=== PATIENT | female | born 1980 | race Caucasian/White ===

== ENCOUNTER → 2021-12-29 12:42 | Outpatient (BNVA) | payer OTHER, SELFPAY | PROVIDERS: PCP Internal Medicine; Visit Provider Nurse Practitioner Family | DX: G47.33 Obstructive sleep apnea (adult) (pediatric) (principal); G25.81 Restless legs syndrome; D64.9 Anemia, unspecified | CPT/HCPCS: 99212 ==

== ENCOUNTER 2023-06-30 13:02 | Outpatient (AMB) | payer OTHER, SELFPAY ==
--- NOTE | 2023-06-30 13:04 | A.OFFVIS_ITS ---
Intake Vital Signs 06/30/23 13:05 Height 5 ft 4 in Weight 242 lb BMI 41.5 BP 104/72 Blood Pressure Location Rt brachial Position Sitting Pulse 82 Pulse Source Pulse Oximeter Pulse Oximetry (%) 96 Oxygen Delivery Method Room Air Intake Visit Reasons: 1yr follow up - LVM Intake Note: Patient presents for follow up. Patient states I see her for sleep but I have other issues I want to discuss with her. Allergies No Known Allergies Allergy (Verified 06/30/23 13:08) Medication List - Last Reconciled 06/30/23 by LACY Rodrigez cetirizine 10 mg PO DAILY 30 days gabapentin 200 mg (2 x 100 mg) PO BEDTIME 30 days insulin lispro (Humalog KwikPen (U-100) Insulin) subcut insulin syringe-needle U-100 (Ultracare Insulin Syringe) As directed levothyroxine 200 mcg PO DAILY omeprazole 40 mg PO DAILY zolpidem 10 mg PO BEDTIME PRN 30 days HPI HPI Comments History of Present Illness Details 42-yr-old female presents for f/u visit. Pt denies any significant interval medical changes. However, in the last month, she started having headaches that come on most nights around 7-8pm and last until the next day. The headache is a mid-frontal pressure and pounding. This is a/w photophobia, phonophobia, fuzzy/blurry vision, difficulty focusing, activity intolerance. Tylenol and Ibuprofen- does not help. Denies recent accidents, infections, neck pain, menstrual changes- has an IUD (has had this one for 3 yrs), dizziness, diplopia. She denies any h/o headaches. Her mother had headaches. She has h/o CLAUS but could not tolerate PAP tx. She continues to have restless legs whenever sitting. Riding her bike helps. She often feels like she sways when walking. She states that she is now needing to take the Ambien, Gabapentin, and Melatonin- she is not sure if this is ok or really why she is doing this. However, she did try just taking the Gabapentin or the Ambien alone- and these were not effective alone. [facility] Medical History (Updated 06/30/23 @ 18:01 by LACY Rodrigez) Anemia Diabetes GERD (gastroesophageal reflux disease) HLD (hyperlipidemia) Hypothyroidism IBS (irritable bowel syndrome) Osteoarthritis Surgical History (Updated 06/30/23 @ 13:09 by DANNY Ley) History of knee replacement No pertinent past surgical history Family History Father Arthritis Mother Depression Social History Alcohol intake: never Patient Tobacco Use Status: Never used Tobacco Review of Systems Const All systems reviewed & are unremarkable except as noted in HPI and below Physical Exam Vital Signs: Last Vital Signs Pulse 82 06/30/23 13:05 BP 104/72 06/30/23 13:05 Pulse Ox 96 06/30/23 13:05 Oxygen Delivery Method Room Air 06/30/23 13:05 BMI result Body Mass Index 41.5 Const General: cooperative and no acute distress Orientation/consciousness: patient oriented x3 HEENT Head: Yes normocephalic Resp Effort & Inspection: normal respiratory effort and able to speak in complete sentences Neuro General: patient oriented x3, gait normal and CN's II-XI intact bilaterally Cognition (Neuro): normal cognition Motor exam (neuro): 5/5 motor strength present throughout Deep tendon reflexes (DTR's): Right triceps reflex intensity grade: 2+, Left tri ceps reflex intensity grade: 2+, Rt Biceps (C5, C6): 2+, Left biceps reflex intensity grade: 2+, Right brachioradialis reflex intensity grade: 2+, Left brachioradialis reflex intensity grade: 2+, Right patellar reflex intensity grade: 1+ and Left patellar reflex intensity grade: 1+ Psych Appearance: grossly normal Mental Status: mental status grossly normal Speech and movement: Normal speech and movement present Affect: normal affect Attitude: cooperative Thought process: Normal thought process present Thought content: Normal thought content present Insight: Good insight present (Psych) Judgement: Good judgement present (Psych) Assessment & Plan Assessment & Plan (1) New onset headache: Code(s): R51.9 - Headache, unspecified (2) Anemia: Code(s): D64.9 - Anemia, unspecified (3) Restless leg syndrome: Code(s): G25.81 - Restless legs syndrome (4) Obstructive sleep apnea: Comment: AHI 12 per hour, O2 eran 77% Code(s): G47.33 - Obstructive sleep apnea (adult) (pediatric) (5) Insomnia: Code(s): G47.00 - Insomnia, unspecified Plan For new onset headache- Pt advised to undergo brain MRI w/wo Start Mag and B2 for prevention. Start Sumatriptan 50-100mg prn. For RLS and Insomnia- May continue Ambien 10 mg q.h.s.. Continue gabapentin 100-200 mg q.h.s.. Pt may benefit from reading/listening to Say Chi to Insomnia by Dr Isaac Medina or similar CBTi resources. Will check f/u CBC, CMP, iron studies. f/u in 3 months or sooner prn. Orders: Orders MR head/brain wo con Today E11.9 - Type 2 diabetes mellitus without complications, E78.5 - Hyperlipidemia, unspecified, H53.149 - Visual discomfort, unspecified, R51.9 - Headache, unspecified Complete Blood Count Auto Diff Today D64.9 - Anemia, unspecified, R51.9 - Headache, unspecified Comprehensive Met. Panel Today D64.9 - Anemia, unspecified, R51.9 - Headache, unspecified Ferritin Today D64.9 - Anemia, unspecified, R51.9 - Headache, unspecified IRON PROFILE Today D64.9 - Anemia, unspecified, R51.9 - Headache, unspecified Transferrin Today D64.9 - Anemia, unspecified, R51.9 - Headache, unspecified Medications: New riboflavin (vitamin B2) 400 mg PO DAILY 30 days 30 tabs 6RF magnesium oxide may hold for loose stools 400 mg PO BEDTIME 30 days 30 tabs 6RF sumatriptan succinate (0.5 - 1 x 100 mg) 50 - 100 mg orally at onset of headache, may repeat in 2 hrs PRN; max 2 tabs per day or 4 tabs/week (may take w ith Ibuprofen) 30 days 12 tabs 6RF migraine headache Coding Level of Care Code Est Pt Level 4 (20867) Diagnoses New onset headache R51.9 Anemia D64.9 Restless leg syndrome G25.81 Obstructive sleep apnea G47.33 Insomnia G47.00
[2023-06-30 13:05] VITALS: BP 104/72; PULSE 82; O2SAT 96; BMI 41.5
== END 2023-06-30 13:55 | disposition home or self-care (01) ==
PROVIDERS: Visit Provider Nurse Practitioner Family
DX: R51.9 Headache, unspecified (principal); D64.9 Anemia, unspecified; G25.81 Restless legs syndrome; G47.33 Obstructive sleep apnea (adult) (pediatric); G47.00 Insomnia, unspecified
CPT/HCPCS: 99214

== ENCOUNTER → 2023-06-30 13:02 | Outpatient (BNVA) | payer OTHER, SELFPAY | PROVIDERS: Visit Provider Nurse Practitioner Family | DX: R51.9 Headache, unspecified (principal); D64.9 Anemia, unspecified; G25.81 Restless legs syndrome; G47.33 Obstructive sleep apnea (adult) (pediatric); G47.00 Insomnia, unspecified; Z79.899 Other long term (current) drug therapy | CPT/HCPCS: 99212 ==

== ENCOUNTER 2023-11-03 15:20 | Outpatient (AMB) | payer OTHER, SELFPAY ==
--- NOTE | 2023-11-03 15:20 | A.OFFVIS_ITS ---
Intake Intake Visit Reasons: Follow up - Confirmed Intake Note: Patient following up. I just want to tell her I need a refill for ambien Allergies No Known Allergies [No Known Allergies*] Allergy (Unverified 11/03/23 15:21) Medication List - Last Reconciled 11/03/23 by LACY Rodrigez cetirizine 10 mg PO DAILY 30 days gabapentin 200 mg (2 x 100 mg) PO BEDTIME 30 days insulin lispro (Humalog KwikPen (U-100) Insulin) subcut insulin syringe-needle U-100 (Ultracare Insulin Syringe) As directed levothyroxine 200 mcg PO DAILY magnesium oxide 400 mg PO BEDTIME 30 days omeprazole 40 mg PO DAILY riboflavin (vitamin B2) 400 mg PO DAILY 30 days sumatriptan succinate 50 - 100 mg orally at onset of headache, may repeat in 2 hrs PRN; max 2 tabs per day or 4 tabs/week (may take with Ibuprofen) 30 days zolpidem 10 mg PO BEDTIME PRN 30 days HPI HPI Comments History of Present Illness Details 43-yr-old female presents for f/u televi alejandro visit through [facility]. She states she recently had a fall, states it was out of the blue fell while walking in a store. Like the leg had given out. She has been having a burning/firer pain moving down from the low back down the back of both legs. She has had some recent XRs to assess for sciatica. She has not been cycling as much recently d/t pain and the weather being colder. She is even having more difficulty walking even in the house but especially walking longer distances- as she needs to take frequent breaks. In the winter, she does ask family for rides at times. She is still having difficulty controlling her blood sugars- she is trying to take small steps to address. She has only had 2 migraines since her last visit in Jun 2023. Baseline migraine: mid-frontal pressure and pounding a/w photophobia, phonophobia, fuzzy/blurry vision, difficulty focusing, activity intolerance. She did try the Sumatriptan both times, which was effective. The brain MRI was unremarkable. She has been holding the Gabapentin- her legs feel ok off of it. She is otherwise sleeping well w/ Ambien 10mg and 2 melatonin gummies. When she misses a dose of ambien, she does not sleep at all even with trying to do some sleep hygiene practices. FORMERLY [facility] Medical History (Updated 11/03/23 @ 15:46 by LACY Rodrigez) Osteoarthritis HLD (hyperlipidemia) GERD (gastroesophageal reflux disease) IBS (irritable bowel syndrome) Hypothyroidism Diabetes Anemia Surgical History (Updated 10/06/23 @ 15:19 by Dawna Neal) History of knee replacement No pertinent past surgical history Family History (System 10/06/23 @ 15:19 by Dawna Neal) Father Arthritis Mother Depression Social History (System 10/06/23 @ 15:19 by Dawna Neal) Alcohol intake: never Patient Tobacco Use Status: Never used Tobacco Review of Systems Const All systems reviewed & are unremarkable except as noted in HPI and below Physical Exam Const General: cooperative and no acute distress Orientation/consciousness: patient oriented x3 Resp Effort & Inspection: normal respiratory effort and able to speak in complete sentences Neuro General: patient oriented x3 Cognition (Neuro): normal cognition Psych Appearance: grossly normal Mental Status: mental status grossly normal Speech and movement: Normal speech and movement present Affect: normal affect Attitude: cooperative Thought process: Normal thought process present Thought content: Normal thought content present Assessment & Plan Assessment & Plan (1) Insomnia: Code(s): G47.00 - Insomnia, unspecified (2) Restless leg syndrome: Code(s): G25.81 - Restless legs syndrome (3) Migraine without aura: Code(s): G43.009 - Migraine without aura, not intractable, without status migrainosus Plan For low back pain with radicular symptoms: Patient advised to follow-up with her PCP regarding recent x-ray results. She may benefit from PT. I If PCP requests we can help with further workup if PT is ineffective. For migraine- Reviewed brain MRI: Normal Continue magnesium and riboflavin for both prevention Continue sumatriptan 50-100 mg p.r.n. For RLS and Insomnia- May continue Ambien 10 mg q.h.s.. May continue to hold gabapentin 100-200 mg q.h.s.. Continue trying to optimize sleep hygiene techniques. Reviewed CBC, CMP, iron studies- within normal limits, ferritin 129 NL, glucose was elevated at 199. f/u in 3 months or sooner prn. Medications: Refilled zolpidem 10 mg PO BEDTIME 30 days PRN 30 tabs 3RF insomnia Telehealth Telehealth Location of provider rendering services: practice address Location of patient: address on file Patient Identification confirmed using: Name, : Yes Telehealth method: video Patient verbally consented to treatment: Yes Patient verbally consented to billing insurance company: Yes Patient informed of any privacy concerns related to visit: Yes Minutes spent on Phone/Video with Pt.: 18 Coding Level of Care Code Tele Est Pt Level 4 (01481) Diagnoses Insomnia G47.00 Restless leg syndrome G25.81 Migraine without aura G43.009
== END 2023-11-05 13:15 | disposition home or self-care (01) ==
LOC: HO.HSMS 15:20
PROVIDERS: PCP Internal Medicine; Visit Provider Nurse Practitioner Family
DX: G47.00 Insomnia, unspecified (principal); G25.81 Restless legs syndrome; G43.009 Migraine without aura, not intractable, without status migrainosus
CPT/HCPCS: 99214

== ENCOUNTER → 2023-11-03 15:20 | Outpatient (BNVA) | payer OTHER, SELFPAY | PROVIDERS: PCP Internal Medicine; Visit Provider Nurse Practitioner Family ==

== ENCOUNTER → 2024-11-17 13:31 | Outpatient (BNVA) | payer OTHER, SELFPAY | PROVIDERS: PCP Internal Medicine; Visit Provider Physician Assistant Medical | DX: G47.00 Insomnia, unspecified (principal); G25.81 Restless legs syndrome; G47.9 Sleep disorder, unspecified; R53.83 Other fatigue | CPT/HCPCS: 99212 ==

== ENCOUNTER 2024-11-21 15:41 | Outpatient (REF) | payer OTHER, SELFPAY ==
--- OUTSIDE RECORDS SUMMARY | 2024-11-21 16:29 | XMS_ITS | Clinical Summary ---
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 04/08/2021 Active traZODone (DESYREL) 50 mg tablet TAKE 1 TABLET BY MOUTH EVERY DAY AT BEDTIME 02/28/2023 Active SITagliptin phosphate (Januvia) 100 mg tablet Take 1 tablet by mouth daily. 02/10/2021 Active omeprazole (PriLOSEC) [address] capsule TAKE 1 CAPSULE BY MOUTH EVERY DAY 06/17/2021 Active metroNIDAZOLE (METROGEL) 0.75 % (37.5mg/5 gram) vaginal gel Insert vaginally at bedtime x 5 nights 04/18/2021 Active metFORMIN XR (GLUCOPHAGE-XR) 500 mg 24 hr tablet TAKE 1 TABLET BY MOUTH DAILY. 11/20/2021 Active meloxicam (Mobic) 15 mg tablet Take 1 Tablet by mouth daily. 12/08/2022 Active levothyroxine (SYNTHROID, LEVOTHROID) 200 mcg tablet TAKE 1 TABLET BY MOUTH EVERY DAY 12/04/2021 Active levothyroxine (SYNTHROID, LEVOTHROID) 175 mcg tablet TAKE 1 TABLET BY MOUTH EVERY DAY 05/28/2021 Active levothyroxine (SYNTHROID, LEVOTHROID) 150 mcg tablet Take 1 Tab by mouth daily. Take med first thing in the morning on empty stomach.?With only water.?Wait 30 minutes to 1 hour minimum before other food/medication/other things to drink 09/18/2020 Active levonorgestreL (MIRENA) 21 mcg/24hr (up to 8 yrs) 52 mg IUD 1 Each by Intrauterine route once. Active insulin lispro (HumaLOG KwikPen) 100 unit/mL injection pen INJECT THREE TIMES A DAY PER SLIDING SCALE WITH MEALS 100-150: 2 UNITS; 151-200: 4 UNITS; 201-250: 6 UNITS; 251-300: 8 UNITS; 301-350: 10 UNITS; 351-400: 12 UNITS 08/18/2023 Active insulin glargine (Lantus Solostar U-100 Insulin) 100 unit/mL (3 mL) injection pen INJECT 10 UNITS INTO THE SKIN AT BEDTIME. 10/13/2022 Active lidocaine-hydrocor tisone-aloe 2.8-0.55 % gel Place 1 Film vaginally 3 times daily as needed (pain). Apply topiclly to affected region thre times talley 04/16/2021 Activ e fluconazole (DIFLUCAN) 150 mg tablet Take one tablet orally in one single dose. May take 2nd tablet in 3 days if no improvement. 05/05/2021 Active cetirizine (ZyrTEC) 10 mg tablet TAKE 1 TABLET BY MOUTH DAILY. 09/27/2023 Active atorvastatin (LIPITOR) 10 mg tablet Take 1 tablet by mouth daily. 10/08/2021 Active ammonium lactate (LAC-HYDRIN) 12 % lotion Apply to soles of feet daily. At night wear socks to bed 09/16/2022 Active mv,josé,iron,mn/fol ic acid/chol (ZVBA-SEQA-GHKGE, PABA, ORAL) Take 2 Tabs by mouth daily. 09/18/2020 Active alcohol swabs pads, medicated USE THREE TIMES DAILY DIRECTED 11/11/2021 Active blood-glucose meter kit USE TO TEST BLOOD SUGAR THREE TIMES DAILY 04/02/2021 Active pen needle, diabetic (Easy Comfort Pen [place]) 33 gauge x 1/4 needle USE 1 NEEDLE SUBCUTANEOUSLY 4 TIMES DAILY 30 DAY(S) 10/06/2022 Active flash glucose scanning reader (FreeStyle Annamarie 14 Day [place]) misc 1 Device by Does not apply route continuous. Use reader to scan sensor at least every 8 hours 04/01/2021 Active flash glucose scanning reader (FreeStyle Annamarie 2 [place]) misc Use daily to check blood sugars 6-10 times a day. 03/13/2021 Active flash glucose sensor (FreeStyle Annamarie 14 Day Sensor) kit 1 Device by Does not apply route every 14 days. Apply to the back of the arm every 14 days. 04/01/2021 Active blood sugar diagnostic (FreeStyle Lite Strips) test strip USE DIRECTED THREE TIMES DAILY 05/04/2022 Active pen needle, diabetic 32 gauge x needle Use one daily with insulin. 03/13/2021 Active lancets (Safety-Let Lancets) 30 gauge misc USE DIRECTED TO TEST THREE TIMES DAILY 02/09/2023 Activ e Active Problems Problem Noted Date Diagnosed Date Dyslipidemia 09/18/2024 Type 2 diabetes mellitus 09/18/2024 Dysuria 08/29/2020 Overview (09/18/2024): Last Assessment & Plan: UA demonstrated mod blood, urine culture sent. Will treat as indicated. Sexual dysfunction 08/29/2020 Overview (09/18/2024): Last Assessment & Plan: Discussed with patient that sexual dysfunction is often multifactorial and may be due to medications, comorbid conditions such as diabetes, psychosocial factors, etc Patient had may questions regarding normal female anatomy and physiology, resources given for general education Discussed sex therapy, which the patient was interested in. Resources given. IBS (irritable bowel syndrome) 05/22/2019 Fatty liver 01/24/2015 Herpes, genital 07/23/2014 Overview (09/18/2024): Positive viral culture 07/19/2014 Elevated transaminase level 08/14/2013 Allergic rhinitis 07/13/2013 Osteoarthritis, knee 07/13/2013 Vitamin D deficiency 09/02/2012 Back pain 01/21/2010 Overview (09/18/2024): Saw Dr. Tariq in the past GERD (gastroesophageal reflux disease) 9 Hypothyroid 10/11/2009 Encounters Date Type Department Care Team Description 09/26/2024 Telephone Orthopedic Surgery [facility] [address] [place] [id number] Lucila Mcgraw from Last 3 Months Immunizations Name Administration Dates Next Due H1N1 Inj Preservative Free 02/07/2010 Influenza Quadravalent, MDCK , 0.5ml, with preservative (Flucelvax) 6mo and older 07/07/2017 Influenza trivalent, 0.5mL, preservative free (Fluarix; FluLaval; Fluzone) ages 6mo and older (Afluria) 3 years and older 06/28/2020,07/25/2014,08/31/2012,2010 Tdap Tetanus diptheria acell ular pertussis (Boostrix; Adacel) 7yo and older 02/07/2010 Surgical History Surgery Date Site/Laterality Comments OTHER SURGICAL HISTORY PROCEDURE: MA RPR LAC 2.5 CM/< MOUTH&/ANT TWO-THIRDS TONG SECTION PROCEDURE: HISTORICAL DELIVERY TOTAL KNEE ARTHROPLASTY 12/2019 Left PROCEDURE: MA ARTHRP KNE CONDYLE&PLATU MEDIAL&LAT COMPARTMENTS Medical History Medical History Date Comments Constipation DX:Constipation GERD (gastroesophageal reflu x disease) 10/11/2009 DX:GERD (gastroesophageal re flux disease) Hypothyroid 10/11/2009 DX:Hypothyroid Back pain 01/21/2010 DX:Back pain Allergic rhinitis 07/13/2013 DX:Allergic rh initis Dyslipidemia DX:Dyslipidemia Type II or unspecified type diabetes mellitus without mention of complication, uncontrolled DX:Type II or unspecified t ype diabetes mellitus without mention of complication, uncontrolled Fatty liver 01/24/2015 DX:Fatty liver 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 edema (CMS/HCC) DX:Diabetes mellitus due to underlying condition with 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 edema (HCC) IBS (irritable bowel syndrome) 05/22/2019 D X:IBS (irritable bowel syndrome) Total knee replacement status 02/01/2020 DX :Total knee replacement status; COMMENT: 01/11 left TKR Family history of thyroid cancer DX:Family history of thyroid cancer Genital herpes 04/18/2021 DX:Genital herpe s; COMMENT: positive culture IUD (intrauterine device) in place DX:IUD (intrauterine device) in place; COMMENT: Juan 02/18/2021 Family History Medical History Relation Name Comments Breast cancer Aunt Paternal aunt Arthritis Father TKR Hypertension Father Other: thyroid cancer Father's side aunt Glaucoma Maternal Grandmother Coronary artery disease Mother Depression Mother Diabetes Mother Glaucoma Mother Lung cancer Mother Other: anxiety Mother Other: bone cancer Mother Other: kidney dis Mother Arthritis Paternal Grandmother hx bila teral TKR Other: AIDS Sister Hepatitis Blindness Neg Hx Cataracts Neg Hx Colon cancer Neg Hx Macular degeneration Neg Hx Prostate cancer Neg Hx Strabismus Neg Hx Relation Name Status Comments Aunt Father Alive Healthy Father's side Maternal Grandmother Mother Alive Back problems; question of cancer; DM Paternal Grandmother Sister Social History Tobacco Use Types Packs/Day Years Used Date Smoking Tobacco: Former Cigarettes Q uit: 10/25/2009 Smokeless Tobacco: Former Alcohol Use Standard Drinks/Week Comments No 0 (1 standard drink = 0.6 oz pur e alcohol) Sex and Gender Information Value Date Recorded Sex Assigned at Not on file Gender Identity Not on file Sexual Orientation Not on file Obstetrics History Last Filed Vital Signs Vital Sign Reading Time Taken Comments Blood Pressure - - Pulse - - Temperature - - Respiratory Rate - - Oxygen Saturation - - Inhaled Oxygen Concentration - - Weight 111 kg (245 lb) 12/08/2022 3:18 PM EST Height 162.6 cm (5' 4 ) 12/08/2022 3:18 PM EST Body Mass Index 42.05 12/08/2022 3:18 PM EST Plan of Treatment Health Maintenance Due Date Last Done Comments Breast Cancer Screening 1982 Pneumococcal Vaccine: Pediatrics (0 to 5 Years) and At-Risk Patients (6 to 64 Years) (1 of 2 - PCV) 1988 Diabetes: Annual Foot Exam 1992 Diabetes: Annual Retina Eye Exam 1992 Hepatitis B Vaccines (1 of 3 - 19+ 3-dose series) 2001 Diabetes: Annual GFR (Glomerular Filtration Rate) 06/29/2021 06/29/2020 Cervical Cancer Screening: HPV 07/23/2022 07/23/2017 Depression Screening 09/21/2022 Social Influencers of Health Screening 09/21/2022 Diabetes: Annual Urine Albumin-Creatinine Ratio (uACR) 10/04/2022 12/04/2020 Diabetes: Blood Sugar Control Test (HGBA1C) 10/04/2022 03/29/2021 COVID-19 Vaccine ( season) 2024 Influenza Vaccine (#1) 2024 0, 06/21/2018, 07/07/2017, Additional history exists DTaP,Tdap,and Td Vaccines (3 - Td or Tdap) 09/16/2025 09/16/2015, 02/07/2010 Cholesterol Screening (Lipid Panel) 12/04/2025 12/04/2020 HIV Screening Completed 09/11/2020 Hepatitis C Screening Completed 09/11/2020 HIB Vaccines Aged Out No longer eligi ble based on patient's age to complete this topic HPV Vaccines Aged Out No longer eligi ble based on patient's age to complete this topic Hepatitis A Vaccines Aged Out No long er eligible based on patient's age to complete this topic IPV Vaccines Aged Out No longer eligi ble based on patient's age to complete this topic MMR Vaccines Aged Out No longer eligi ble based on patient's age to complete this topic Meningococcal ACWY Vaccine Aged Out N o longer eligible based on patient's age to complete this topic RSV Immunization Patients Under 20 months Aged Out No longer eligible based on patient's age to complete this topic Varicella Vaccines Aged Out No longer eligible based on patient's age to complete this topic Procedures Procedure Name Priority Date/Time Associated Diagnosis Comments HEMOGLOBIN A1C Routine 03/29/2021 URINE ALBUMIN CREATININE RATIO Routine 12/04/2020 LIPID PANEL Routine 12/04/2020 HEPATITIS C SCREENING Routine 09/11/2020 HIV SCREENING Routine 09/11/2020 ANNUAL BMP BLOOD TEST Routine 06/29/2020 HPV Routine 07/23/2017 from Last 3 Months or Most Recently Relevant to Health Maintenance Results * (ABNORMAL) Hemoglobin A1c (03/29/2021) Hemoglobin A1C 9.2(A) 6.5 % Blood Venous blood specimen / Unknown Historical Provider LAB BLOOD ORDERAB LES * Urine Albumin Creatinine Ratio (12/04/2020) [facility] Urine Albumin Creatinine Ratio Abstracted Historical Provider [facility] * (ABNORMAL) Lipid panel (12/04/2020) [facility] LDL/HDL Ratio 4 0 - 4 Triglycerides 184(A) 0 - 150 mg/dL Cholesterol 172 0 - 200 mg/dL HDL 42 40 mg/dL LDL Cholesterol 94 0 - 100 mg/dL Blood Venous blood specimen / Unknown Historical Provider LAB BLOOD ORDERAB [facility] * HIV Screening (09/11/2020) [facility] HIV Screening Abstracted Historical Provider [facility] * Hepatitis C Screening (09/11/2020) [facility] Hepatitis C Screening Abstracted Historical Provider [facility] * Annual BMP Blood Test (06/29/2020) [facility] Annual BMP Blood Test Abstracted Historical Provider [facility] * Cervical Cancer Screening: HPV (07/23/2017) 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
[2024-11-21 17:47] LABS: Hematocrit 42.3 % (37.0-47.0); Hemoglobin 14.2 g/dl (12.0-16.0); Mean Corpuscular HGB Conc 33.6 g/dl (31.0-35.0); Mean Corpuscular Hemoglobin 29.8 pg (27.0-33.0); Mean Corpuscular Volume 88.9 fL (80.0-98.0); Mean Platelet Volume 11.5 fL (9.4-12.3); Platelet Count 231 X10*3/uL (160-400); Red Blood Count 4.76 X10*6/uL (4.20-5.50); Red Cell Distribution Width 12.4 % (11.0-16.0); White Blood Count 7.7 X10*3/uL (4.8-10.8)
[2024-11-21 18:02] LABS: Estimated Average Glucose 169 mg/dL; Hemoglobin A1C 218.0888 umol/L; Hemoglobin A1c % 7.5 % (<6.0); Total Hemoglobin (HGBA1C) 3729.5687 umol/L
[2024-11-21 18:10] LABS: Alanine Aminotransferase 99 U/L (0-31); Alkaline Phosphatase 113 U/L (39-117); Anion Gap 11 (12-20); Aspartate Amino Transferase 65 U/L (5-31); Bilirubin Total 0.2 mg/dL (0.0-1.0); Blood Urea Nitrogen 13 mg/dL (9-16); Carbon Dioxide 26 mmol/L (22-29); Chloride 108 mmol/L (96-108); Estimated Glomerular Filt Rate > 60; Glucose Random 187 mg/dL (60-115); Potassium 3.8 mmol/L (3.3-5.1); Sodium 141 mmol/L (135-145)
[2024-11-21 18:27] LABS: TSH reflex Free T4 0.04 uIU/mL (0.32-4.0); Vitamin D 25-OH Total 63.3 ng/mL (>30)
[2024-11-21 18:38] LABS: Folate 14.1 ng/mL (> or = 4.0); Vitamin B12 677 pg/mL (200-900)
[2024-11-21 19:47] LABS: Free T4 (Free Thyroxine) 1.36 ng/dL (0.71-1.85)
[2024-11-24 19:58] LABS: Methylmalonic Acid 83 nmol/L (55-335)
== END 2024-11-21 15:42 | disposition home or self-care (01) ==
LOC: HO.HKASLDS 15:41
PROVIDERS: Visit Provider Physician Assistant Medical
DX: G47.00 Insomnia, unspecified (principal); R53.83 Other fatigue; G47.9 Sleep disorder, unspecified; F09 Unspecified mental disorder due to known physiological condition
CPT/HCPCS: 36415; 80053; 82306; 82607; 82746; 83036; 83921; 84439; 84443; 85027

== ENCOUNTER 2025-03-29 14:58 | Outpatient (AMB) | payer OTHER, SELFPAY ==
[2025-03-29 14:59] VITALS: PULSE 90; O2SAT 97; BMI 44.6
--- NOTE | 2025-03-29 14:59 | MHC.OFFVIS ---
Vital Signs 03/29/25 14:59 Height 5 ft 4 in Weight 260 lb BMI 44.6 Pulse 90 Pulse Source Pulse Oximeter Pulse Oximetry (%) 97 Oxygen Delivery Method Room Air Intake Visit Reasons: follow up Intake Note: Patient presents follow up CLAUS/RLS. Labs/HST in chart(AHI-36.6, ERAN 77%. Start APAP 8-20cm water). Had one awhile ago but missed placed in and now having Trouble getting machine. Accompanied by: Daughter Allergies No Known Allergies [No Known Allergies*] Allergy (Verified 03/29/25 15:04) HPI Comments Details: 44-yr-old female presents for sleep evaluation. HST c/w severe claus AHI is 36.6 and oxygen eran 77%. She recently had r. knee replacement on Mar 09 2025, she is in a wheelchair, and it is healing, will start PT for 6-12 weeks. In 2020 she was compliant with her cpap use, she was cleaning the house and moving so she misplaced it on the moving truck in Oct 2023, since then she has not been able to sleep very well. She continues to have fragmented sleep, she goes to bed at 11pm and gets up at 6am. Her migraines are now better, decreased in intensity and frequency, however constantly is fatigued despite TSH correction with Levothyroxing 200mcg and still feeling exhausted. She used to take Ambien 10mg and 2 melatonin gummies daily at 1am then falls asleep at 3am. RLS: Neuropathy, L. knee replacement December 2019 Dr. Shruti IVY, Valentina sided sciatica and L. ankle feels like it is on fire, burning, numbness, sensation and jumpiness will not let her relax at night, she is on gabapentin 1 in the am and 1 at lunch then 2- 100mg at night, per her pcp Dr. Ponce at [facility]. She also has bilateral hand pain with numbness, pins and needles along with cramps worse at night. Her memory is poor, she is forgetting her thought process, concentration and lack focus. She c/o brain fog today. Mood, memory and diet are poor due to lack of sleep. Her A1c is now better managed on insulin. [facility] Medical History Osteoarthritis HLD (hyperlipidemia) GERD (gastroesophageal reflux disease) IBS (irritable bowel syndrome) Hypothyroidism Diabetes Anemia Surgical History History of knee replacement No pertinent past surgical history Family History Father Arthritis Mother Depression Social History Alcohol intake: never Patient Tobacco Use Status: Never used Tobacco Physical Exam Vital Signs: Last Vital Signs Pulse 90 03/29/25 14:59 Pulse Ox 97 03/29/25 14:59 Oxygen Delivery Method Room Air 03/29/25 14:59 BMI result Body Mass Index 44.6 Const General: cooperative, comfortable and no acute distress Nutritional Appearance: average body habitus and obese (BMI is 44) Orientation/consciousness: patient oriented x3 HEENT Face and sinus: Yes normal facial exam and Yes face symmetric Teeth and gingiva: other ([place] score of 4) Eyes Pupils: Equal, round and reactive pupils present Neck Neck: Yes full ROM and Yes supple Resp Effort & Inspection: normal respiratory effort and able to speak in complete sentences Neuro General: patient oriented x3 and moves all extremities Cranial nerves: Yes CN's II-XII intact bilaterally, Yes Facial sensation intact/muscles of mastication intact, Yes Equal, round and reactive pupils present, Yes Normal accommodation reflex present, Yes Bilaterally intact EOM present, Yes Nystagmus not present, Yes Normal facial strength present, Yes Midline tongue present, Yes Symmetric palate elevation present, Yes Ability to bilaterally rotate head present and Yes Ability to bilaterally elevate shoulders present Gait exam (Neuro): Normal gait present Motor exam (neuro): 5/5 motor strength present throughout and Normal motor muscle tone present throughout Coordination: [id number] test normal Psych Appearance: grossly normal Thought content: Normal thought content present Assessment & Plan Assessment & Plan (1) Restless leg syndrome: Code(s): G25.81 - Restless legs syndrome Category: Medical (2) Insomnia: Onset Date: ~11/17/24 Code(s): G47.00 - Insomnia, unspecified Category: Medical Qualifiers: Insomnia type: unspecified Qualified Code(s): G47.00 - Insomnia, unspecified (3) Fatigue due to sleep pattern disturbance: Code(s): R53.83 - Other fatigue; G47.9 - Sleep disorder, unspecified Category: Medical Plan CLAUS start cpap therapy. Excessive Daytime fatigue will send labs to r/o deficiencies. RLS: Will continue her GP 200mg at bedtime daily. Migraine free for now, has Sumatriptan PRN use. Will f/u in 3 months after HST. Orders: Orders Homocysteine 03/29/25 G47.9 - Sleep disorder, unspecified, R53.83 - Other fatigue Ferritin 03/29/25 G47.9 - Sleep disorder, unspecified, R53.83 - Other fatigue Hemoglobin A1c 03/29/25 G47.9 - Sleep disorder, unspecified, R53.83 - Other fatigue IRON PROFILE 03/29/25 G47.9 - Sleep disorder, unspecified, R53.83 - Other fatigue Methylmalonic Acid 03/29/25 G47.9 - Sleep disorder, unspecified, R53.83 - Other fatigue TSH reflex Free T4 03/29/25 G47.9 - Sleep disorder, unspecified, R53.83 - Other fatigue Vitamin D 25-OH Total 03/29/25 G47.9 - Sleep disorder, unspecified, R53.83 - Other fatigue Medications: New alpha lipoic acid take one capsule daily at bedtime for restless leg syndrome. 200 mg PO DAILY 30 caps 0RF rls 1 month MDD 200mg G25.81 - Restless legs syndrome pyridoxine (vitamin B6) take one tablet daily at bedtime for restless leg symptoms of jumpy legs. 100 mg PO 2XW 30 tabs 3RF restless legs syndrome MDD 100mg G25.81 - Restless legs syndrome Patient Instructions: Sleep Hygiene provided: set a scheduled bedtime and wake time to help regulate the circadian rhythm and balance the release of pituitary hormones. Sleep in a dark room, temperatures below 68 degrees, and no devices n bed. Limit caffeinated products 6 hours prior to bed, and limit fluids 2-4 hours prior to bed. Gentle night yoga, diffusing essential oils, and playing soft music can be relaxing. Coding Level of Care Code Est Pt Level 4 (20281) Diagnoses Restless leg syndrome G25.81 Insomnia, unspecified type G47.00 Insomnia type: unspecified Fatigue due to sleep pattern disturbance R53.83; G47.9 Time Spent (min) 30 Comment Improving
--- OUTSIDE RECORDS SUMMARY | 2025-03-29 17:40 | XMS_ITS | Encounter Summary ---
Author Organization [facility] Address [address] [place] [address] Care Team Providers Care Punch Operator Name Role Phone Sabas Spain MD Primary Care Provider [phone] Encounter Details Date Type Department Care Team (Late st Contact Info) Description 03/25/2025 Lab Requisition [facility] - Main Lab [address] [facility] [place] [address] Sabas Spani MD [address] [place] [id number] Essential (primary) hypertension Social History Tobacco Use Types Packs/Day Years Used Date Smoking Tobacco: Former Cigarettes Q uit: 10/25/2009 Smokeless Tobacco: Former Alcohol Use Standard Drinks/Week Comments No 0 (1 standard drink = 0.6 oz pur e alcohol) Comments Unknown Sex and Gender Information Value Date Recorded Sex Assigned at Not on file Legal Sex Female 9:25 AM EST Gender Identity Not on file Sexual Orientation Not on file documented as of this encounter Plan of Treatment Not on file documented as of this encounter Visit Diagnoses Diagnosis Essential (primary) hypertension Unspecified essential hypertension documented in this encounter Care Teams Punch Operator Relationship Specialty Start Date End Date Sabas Spain MD [address] [facility] [address] [facility] [id number] PCP - General Family Medicine 03/22/25 documented as of this encounter
== END 2025-03-29 15:57 | disposition home or self-care (01) ==
LOC: HO.HSMS 14:59
PROVIDERS: PCP Internal Medicine; Visit Provider Physician Assistant Medical
DX: G25.81 Restless legs syndrome (principal); G47.00 Insomnia, unspecified; R53.83 Other fatigue; G47.9 Sleep disorder, unspecified
CPT/HCPCS: 99214

== ENCOUNTER → 2025-03-29 14:58 | Outpatient (BNVA) | payer OTHER, SELFPAY | PROVIDERS: PCP Internal Medicine; Visit Provider Physician Assistant Medical | DX: G25.81 Restless legs syndrome (principal); G47.00 Insomnia, unspecified; G47.9 Sleep disorder, unspecified; R53.83 Other fatigue | CPT/HCPCS: 99212 ==

== ENCOUNTER 2025-07-11 13:44 | Outpatient (AMB) | payer OTHER, SELFPAY ==
[2025-07-11 13:49] VITALS: BP 110/72; PULSE 72; O2SAT 97; BMI 41.2
--- NOTE | 2025-07-11 13:49 | A.OFFVIS_ITS ---
Vital Signs 07/11/25 13:49 Height 5 ft 4 in Weight 240 lb BMI 41.2 BP 110/72 Blood Pressure Location Rt brachial Position Sitting Pulse 72 Pulse Source Pulse Oximeter Pulse Oximetry (%) 97 Oxygen Delivery Method Room Air Intake Visit Reasons: Follow up Airline Stewardess Required: No Allergies No Known Allergies (No Known Allergies*) Allergy (Verified 07/11/25 13:49) HPI Comments Details: 44-year-old female presents for follow-up of insomnia, restless leg syndrome, and migraine. Patient was last seen on 03/29/2025 by SUELLEN Oconnor. 12/16/2024 HST showed severe obstructive sleep apnea with nocturnal hypoxemia with AHI 37 per hour, average SpO2 92%, O2 eran 77%, and SpO2 under 88% times 14.7 minutes. The recommendation from the HST report was for the patient to undergo a follow- up in-lab PAP titration sleep study with ETCO2. Patient states she thought she was going to restart CPAP after her last visit; however, she has not heard anything about this yet. She continues to endorse snoring, difficulty initiating and maintaining sleep, and restlessness when inactive. She reports Ambien is not working as well as it used to. She was also started on vitamin B6 by SUELLEN Boucher, which she is taking at bedtime. She typically takes the Ambien around 12 am, as she states that if she takes it after 2 am, she will not be able to sleep at all. She typically wakes up around 12 noon and states that this works for her lifestyle. She is not sure when her last thyroid levels were checked. She also notes that her PCP moved from [place] to the [facility], and she does not have transportation to get to the [facility]. Typically, she walks to most places from her home in the [facility]. She does see her flow machine operator for her diabetes management at [facility], and she states she is waiting to receive her next follow-up appointment. [facility] Medical History (Updated 07/12/25 @ 08:50 by LACY Rodrigez) Obstructive sleep apnea Osteoarthritis HLD (hyperlipidemia) GERD (gastroesophageal reflux disease) IBS (irritable bowel syndrome) Hypothyroidism Diabetes Anemia Surgical History History of knee replacement No pertinent past surgical history Family History Father Arthritis Mother Depression Social History Alcohol intake: never Patient Tobacco Use Status: Never used Tobacco Review of Systems Const All systems reviewed & are unremarkable except as noted in HPI and below Physical Exam Vital Signs: Last Vital Signs Pulse 72 07/11/25 13:49 BP 110/72 07/11/25 13:49 Pulse Ox 97 07/11/25 13:49 Oxygen Delivery Method Room Air 07/11/25 13:49 BMI result Body Mass Index 41.2 Const Other: Central obesity General: cooperative and no acute distress Orientation/consciousness: patient oriented x3 Resp Effort & Inspection: normal respiratory effort and able to speak in complete sentences Neuro General: patient oriented x3 Cognition (Neuro): normal cognition Psych Appearance: grossly normal Mental Status: mental status grossly normal Speech and movement: Normal speech and movement present Affect: normal affect Attitude: cooperative Assessment & Plan Assessment & Plan (1) Severe obstructive sleep apnea: Code(s): G47.33 - Obstructive sleep apnea (adult) (pediatric) Category: Medical (2) Nocturnal hypoxemia: Code(s): G47.34 - Idiopathic sleep related nonobstructive alveolar hypoventilation Category: Medical (3) Insomnia: Onset Date: ~11/17/24 Code(s): G47.00 - Insomnia, unspecified Category: Medical Qualifiers: Insomnia type: unspecified Qualified Code(s): G47.00 - Insomnia, unspecified (4) Restless leg syndrome: Code(s): G25.81 - Restless legs syndrome Category: Medical (5) Migraine without aura: Code(s): G43.009 - Migraine without aura, not intractable, without status migrainosus Category: Medical Qualifiers: Status migrainosus presence: without status migrainosus Intractability: not intractable Qualified Code(s): G43.009 - Migraine without aura, not intractable, without status migrainosus Plan For severe CLAUS with nocturnal hypoxemia, RLS, and Insomnia: * Patient advised to undergo follow-up in-lab PAP titration study with ETCO2 at [facility], as per patient's preference, as she prefers to walk to her health appo intments. * Check fasting labs today to assess for underlying etiologies of RLS symptoms. * Trial Dayvigo 5 mg at sleep onset * Discontinue Ambien 10 mg q.h.s. when Dayvigo is available * Continue gabapentin 100-200 mg q.h.s. * Adjust the vitamin B6 dose from q.h.s. to q.a.m. However, we will check the level as the patient does not have a baseline serum B6 level. * Reviewed strategies to optimize sleep hygiene: * If you are waking up at 12 pm, aim for a bedtime around 3-5 a.m., as most people need 7-9 hours of sleep, * Maintain a consistent wake-up schedule * Encouraged patient to listen to sleep education resources, such as the Sleep Unplugged podcast by Dr. Tim Evans * Regular physical activity is one of the best things to do for sleep. * Keeping the same wake-up time is critical for good sleep. For migraine- Previous brain MRI: Normal Continue magnesium and riboflavin for migraine prevention Continue sumatriptan 50-100 mg p.r.n. As the patient does not currently have access to her PCP, we will see if she can be set up with a PT1 transportation service or assist her in finding a new local PCP. Will follow-up upon review of above and patient to follow-up in clinic in 6 months or sooner prn. Orders: Orders Complete Blood Count Auto Diff 07/11/25 D64.9 - Anemia, unspecified, E03.9 - Hypothyroidism, unspecified, E11.9 - Type 2 diabetes mellitus without complications, E78.5 - Hyperlipidemia, unspecified, M79.609 - Pain in unspecified limb, R20.2 - Paresthesia of skin Comprehensive [place]. Panel Fast 07/11/25 D64.9 - Anemia, unspecified, E03.9 - Hypothyroidism, unspecified, E11.9 - Type 2 diabetes mellitus without com plications, E78.5 - Hyperlipidemia, unspecified, M79.609 - Pain in unspecified limb, R20.2 - Paresthesia of skin Ferritin 07/11/25 D64.9 - Anemia, unspecified, E03.9 - Hypothyroidism, unspecified, E11.9 - Type 2 diabetes mellitus without complications, E78.5 - Hyperlipidemia, unspecified, M79.609 - Pain in unspecified limb, R20.2 - Paresthesia of skin Erythrocyte Sedimentation Rate 09/17/25 D64.9 - Anemia, unspecified, E03.9 - Hypothyroidism, unspecified, E11.9 - Type 2 diabetes mellitus without complications, E78.5 - Hyperlipidemia, unspecified, M79.609 - Pain in unspecified limb, R20.2 - Paresthesia of skin Vitamin B1 07/11/25 D64.9 - Anemia, unspecified, E03.9 - Hypothyroidism, unspecified, E11.9 - Type 2 diabetes mellitus without complications, E51.9 - Thiamine deficiency, unspecified, E78.5 - Hyperlipidemia, unspecified, M79.609 - Pain in unspecified limb, R20.2 - Paresthesia of skin Vitamin D 25-OH (D2 and D3) 07/11/25 D64.9 - Anemia, unspecified, E03.9 - Hypothyroidism, unspecified, E11.9 - Type 2 diabetes mellitus without complications, E55.9 - Vitamin D deficiency, unspecified, E78.5 - Hyperlipidemia, unspecified, M79.609 - Pain in unspecified limb, R20.2 - Paresthesia of skin Hemoglobin A1c 07/11/25 D64.9 - Anemia, unspecified, E03.9 - Hypothyroidism, unspecified, E11.9 - Type 2 diabetes mellitus without complications, E78.5 - Hyperlipidemia, unspecified, M79.609 - Pain in unspecified limb, R20.2 - Paresthesia of skin Lipid Panel with Reflex 07/11/25 E78.5 - Hyperlipidemia, unspecified RT PSG in-lab sleep titration 07/11/25 G47.33 - Obstructive sleep apnea (adult) (pediatric), G47.34 - Idiopathic sleep related nonobstructive alveolar hypoventilation, Z68.41 - Body mass index [BMI] 40.0-44.9, adult IRON PROFILE 07/11/25 D64.9 - Anemia, unspecified, E03.9 - Hypothyroidism, unspecified, E11.9 - Type 2 diabetes mellitus without complications, E78.5 - Hyperlipidemia, unspecified, M79.609 - Pain in unspecified limb, R20.2 - Paresthesia of skin C Reactive Protein 07/11/25 D64.9 - Anemia, unspecified, E03.9 - Hypothyroidism, unspecified, E11.9 - Type 2 diabetes mellitus without complications, E78.5 - Hyperlipidemia, unspecified, M79.609 - Pain in unspecified limb, R20.2 - Paresthesia of skin Lyme IgG/IgM w/reflex to WB 07/11/25 G25.81 - Restless legs syndrome, M79.609 - Pain in unspecified limb, R20.2 - Paresthesia of skin, R53.83 - Other fatigue Vitamin B12 and Folate 07/11/25 D64.9 - Anemia, unspecified, E03.9 - Hypothyroidism, unspecified, E11.9 - Type 2 diabetes mellitus without complications, E78.5 - Hyperlipidemia, unspecified, M79.609 - Pain in unspecified limb, R20.2 - Paresthesia of skin Vitamin B6 07/11/25 D64.9 - Anemia, unspecified, E03.9 - Hypothyroidism, unspecified, E11.9 - Type 2 diabetes mellitus without complications, E78.5 - Hyperlipidemia, unspecified, M79.609 - Pain in unspecified limb, R20.2 - Paresth esia of skin TSH reflex Free T4 07/11/25 D64.9 - Anemia, unspecified, E03.9 - Hypothyroidism, unspecified, E11.9 - Type 2 diabetes mellitus without complications, E78.5 - Hyperlipidemia, unspecified, M79.609 - Pain in unspecified limb, R20.2 - Paresthesia of skin Methylmalonic Acid 07/11/25 D64.9 - Anemia, unspecified, E03.9 - Hypothyroidism, unspecified, E11.9 - Type 2 diabetes mellitus without complications, E78.5 - Hyperlipidemia, unspecified, M79.609 - Pain in unspecified limb, R20.2 - Paresthesia of skin Magnesium 07/11/25 D64.9 - Anemia, unspecified, E03.9 - Hypothyroidism, unspecified, E11.9 - Type 2 diabetes mellitus without complications, E78.5 - Hyperlipidemia, unspecified, M79.609 - Pain in unspecified limb, R20.2 - Paresthesia of skin Homocysteine 07/11/25 D64.9 - Anemia, unspecified, E03.9 - Hypothyroidism, unspecified, E11.9 - Type 2 diabetes mellitus without complications, E78.5 - Hyperlipidemia, unspecified, M79.609 - Pain in unspecified limb, R20.2 - Paresthesia of skin Medications: New lemborexant (Dayvigo) 5 mg PO BEDTIME 30 tabs 1RF 30 days Coding Level of Care Code Est Pt Level 4 (02237) Complex EM visit Add On G2211 Diagnoses Severe obstructive sleep apnea G47.33 Nocturnal hypoxemia G47.34 Insomnia, unspecified type G47.00 Insomnia type: unspecified Restless leg syndrome G25.81 Migraine without aura and without status migrainosus, not intractable G43.009 Status migrainosus presence: without status migrainosus Intractability: not intractable
== END 2025-07-11 15:08 | disposition home or self-care (01) ==
LOC: HO.HSMS 13:44
PROVIDERS: PCP Internal Medicine; Visit Provider Nurse Practitioner Family
DX: G47.33 Obstructive sleep apnea (adult) (pediatric) (principal); G47.34 Idiopathic sleep related nonobstructive alveolar hypoventilation; G47.00 Insomnia, unspecified; G25.81 Restless legs syndrome; G43.009 Migraine without aura, not intractable, without status migrainosus
CPT/HCPCS: 99214

== ENCOUNTER 2025-07-11 13:44 | Outpatient (REF) | payer OTHER, SELFPAY ==
[2025-07-11 18:17] LABS: MANUAL DIFF FLAG NO
[2025-07-11 18:19] LABS: Hematocrit 42.2 % (37.0-47.0); Hemoglobin 13.8 g/dl (12.0-16.0); Imm Gran Abs Auto 0.02 X10*3/uL (0.00-0.03); Imm Gran Pct Auto 0.3 % (0.0-0.4); Lymphocytes Absolute Auto 1.7 X10*3/uL (1.2-4.9); Mean Corpuscular HGB Conc 32.7 g/dl (31.0-35.0); Mean Corpuscular Hemoglobin 28.0 pg (27.0-33.0); Mean Corpuscular Volume 85.8 fL (80.0-98.0); NRBC Abs Auto 0.000 X10*3/uL (0.0-0.012); NRBC Pct Auto 0.0 /100WBC (0.0-0.2); Platelet Count 272 X10*3/uL (160-400); Red Blood Count 4.92 X10*6/uL (4.20-5.50); White Blood Count 7.2 X10*3/uL (4.8-10.8)
[2025-07-11 18:39] LABS: Alanine Aminotransferase 72 U/L (0-31); Albumin Level 4.1 g/dL (3.5-5.0); Alkaline Phosphatase 132 U/L (39-117); Anion Gap 12 (12-20); Aspartate Amino Transferase 56 U/L (5-31); Blood Urea Nitrogen 19 mg/dL (9-16); Calcium 9.4 mg/dL (8.4-10.2); Carbon Dioxide 25 mmol/L (22-29); Chloride 107 mmol/L (96-108); Cholesterol 146 mg/dL (<200); Estimated Glomerular Filt Rate > 60; HDL Cholesterol 42 mg/dL (>40); Iron 70 mcg/dL (30-160); Magnesium 2.0 mg/dL (1.6-2.6); Percent Iron Saturation 26 % (15-50); Potassium 4.6 mmol/L (3.3-5.1); Sodium 139 mmol/L (135-145); Total Iron Binding Capacity 268 mcg/dL (228-428); Total Protein 6.7 g/dL (6.5-8.0); Triglycerides 146 mg/dL (<150); Unsaturated Iron Binding 198 ug/dL
[2025-07-11 18:58] LABS: Ferritin 135 ng/mL (10-250)
[2025-07-11 19:09] LABS: Folate 10.0 ng/mL (> or = 4.0); Vitamin B12 410 pg/mL (200-900)
[2025-07-11 19:32] LABS: Reflex LDLD? No
[2025-07-11 20:08] LABS: Free T4 (Free Thyroxine) 1.50 ng/dL (0.71-1.85)
[2025-07-12 13:32] LABS: Lyme Abs Screen <0.90 index
[2025-07-17 05:08] LABS: Vitamin D 25-OH, D2 <4 ng/mL; Vitamin D 25-OH, D3 36 ng/mL; Vitamin D 25-OH, Total 36 ng/mL (30-100)
== END 2025-07-11 13:45 | disposition home or self-care (01) ==
LOC: HO.HKASLDS 13:44
PROVIDERS: PCP Internal Medicine; Visit Provider Nurse Practitioner Family
DX: D64.9 Anemia, unspecified (principal); E11.9 Type 2 diabetes mellitus without complications; E78.5 Hyperlipidemia, unspecified; E03.9 Hypothyroidism, unspecified; R20.2 Paresthesia of skin; M79.609 Pain in unspecified limb; E51.9 Thiamine deficiency, unspecified; R53.83 Other fatigue; G25.81 Restless legs syndrome; E55.9 Vitamin D deficiency, unspecified; G47.33 Obstructive sleep apnea (adult) (pediatric); G47.34 Idiopathic sleep related nonobstructive alveolar hypoventilation; G47.00 Insomnia, unspecified; G43.009 Migraine without aura, not intractable, without status migrainosus; Z79.899 Other long term (current) drug therapy; Z01.84 Encounter for antibody response examination; Z13.29 Encounter for screening for other suspected endocrine disorder; Z13.1 Encounter for screening for diabetes mellitus; Z13.6 Encounter for screening for cardiovascular disorders
CPT/HCPCS: 36415; 80053; 80061; 82306; 82607; 82728; 82746; 83036; 83090; 83540; 83735; 83921; 84207; 84425; 84439; 84443; 85025; 85652; 86140; 86617; 86618; 99212

== ENCOUNTER 2025-10-01 15:41 | Outpatient (AMB) | payer OTHER, SELFPAY ==
--- NOTE | 2025-10-01 15:55 | MHC.PC.OV ---
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 Intake Note: Patient present for new patient appointment and dm Public Relations Coordinator Required: No Allergies No Known Allergies (No Known Allergies*) Allergy (Verified 10/01/25 16:00) Medication List - Last Reconciled 10/01/25 by Ubaldo Dominguez MD aspirin 81 mg PO BID atorvastatin 20 mg PO DAILY cetirizine 10 mg PO DAILY 30 days diclofenac sodium 1% 1 ea topical QID eszopiclone (Lunesta) 3 mg PO BEDTIME 30 days eszopiclone (Lunesta) 6 mg (2 x 3 mg) PO BEDTIME 30 days gabapentin 200mg 2 hours before bedtime and 300mg at bedtime orally .; 30 days insulin degludec (Tresiba FlexTouch U-200 insulin) 30 units subcut insulin lispro (Humalog KwikPen (U-100) Insulin) 1 sliding scale dose subcut insulin syringe-needle U-100 (Ultracare Insulin Syringe) As directed levothyroxine 200 mcg PO DAILY magnesium oxide 400 mg PO BEDTIME 30 days omeprazole 40 mg PO DAILY valacyclovir 500 mg PO BID Tobacco use date assessed: 10/01/25 Dental Screening Dental Screen Date: 10/01/25 Did you have a dental visit in the last 12 months?: No Did you have a dental problem in the last 6 months where you did not have access to dental care?: No Was dental information given to patient?: No HPI HPI Comments History of Present Illness Details History of Present Illness The patient is a 45 year old female presenting with a new patient visit to establish care and for management of multiple chronic conditions. Type 2 Diabetes Mellitus: The patient has a long-standing history of type 2 diabetes mellitus, diagnosed many years ago. Her current treatment regimen consists of two types of insulin: a long-acting insulin of 30 units at night and a short-acting insulin administered on a sliding scale before meals. She has a history of hospitalizations for hyperglycemia, with one episode where her blood sugar was over 500 mg/dL due to difficulty obtaining insulin and another time when she was close to developing diabetic ketoacidosis (DKA). She has seen a hydroelectric mechanic in the past but did not find it very helpful, and has never seen a childbirth educator. Her last podiatry visit was last year, and it has been a while since her last ophthalmology exam. Peripheral Neuropathy: The patient takes gabapentin for peripheral neuropathy. She also describes a new symptom in one leg of a burning, fire-like sensation that travels from her foot up to just below her knee, which occurs when she walks too much. She had a similar issue in the other leg previously, which resolved completely after a corticosteroid injection into her ankle. Migraine: The patient reports suffering from occasional migraines and sees a neurology specialist for this condition. Obstructive Sleep Apnea: The patient was diagnosed with sleep apnea and recently underwent an in-lab sleep study. During the study, different masks were tried, but she was subsequently told an at-home sleep study would be better. Hypothyroidism: The patient has hypothyroidism and takes levothyroxine 100 mcg daily. Gastroesophageal Reflux Disease: The patient takes omeprazole for gastrointestinal issues, described as heartburn or gastritis. Insomnia: The patient takes eszopiclone (Lunesta) for sleep, which was recently prescribed by her neurology provider. She feels the current dose is not high enough and is not helping her sleep. She has a follow-up appointment scheduled with neurology to discuss this. Health Maintenance: The patient's last Pap smear was performed a while ago, and records are needed. She had one mammogram during the summer of the current year and was told to come back, but has not yet. She reports not having her menstrual period anymore since having her IUD removed, which occurred about last year. Surgical History: - Bilateral total knee arthroplasty - Intrauterine device (IUD) removal (last year) Medications: - Insulin (long-acting): 30 units at night for type 2 diabetes. - Insulin (short-acting): Sliding scale before meals for type 2 diabetes. - Levothyroxine 100 mcg: For hypothyroidism. - Omeprazole: For gastritis/heartburn. - Valacyclovir: For oral herpes (cold sores). - Gabapentin: For peripheral neuropathy. - Eszopiclone (Lunesta): For sleep. 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 - Functional Status: The patient's daughter is her talent development coordinator and accompanies her everywhere. - Transportation: The patient does not drive and has difficulty getting to appointments. - Education: The patient was diagnosed with a learning disability at age [age]. Past Medical History - Type 2 Diabetes Mellitus, diagnosed many years ago. - Migraines, under care of neurology. - Obstructive sleep apnea, diagnosed after a sleep study. - Hypothyroidism. - Gastroesophageal reflux disease (GERD)/gastritis. - Oral herpes simplex (cold sores). - Peripheral neuropathy. - Insomnia. - Learning disability, diagnosed at age [age]. - Hospitalizations: Admitted for hyperglycemia with blood sugar over 500 mg/dL, and another time was near diabetic ketoacidosis (DKA). Health Maintenance - Last Pap smear was a while ago; due for screening. - Last mammogram was in the summer of this year; should be done annually. - Last podiatry exam was last year; due for annual diabetic foot exam. - Last ophthalmology exam was a while ago; due for annual diabetic eye exam. [facility] Medical History (Updated 10/01/25 @ 18:09 by Ubaldo Dominguez MD) Skin tag Learning disability Peripheral neuropathy Screening for diabetic retinopathy Diabetes type 2 Obstructive sleep apnea Osteoarthritis HLD (hyperlipidemia) GERD (gastroesophageal reflux disease) IBS (irritable bowel syndrome) Hypothyroidism Diabetes Anemia Surgical History History of knee replacement No pertinent past surgical history Family History Father Arthritis Mother Depression Social History (Updated 10/01/25 @ 16:07 by Vinay Rizo CMA) Housing: Apartment Alcohol intake: never Patient Tobacco Use Status: Never used Tobacco e-Cigarette/Vaping Use: Never Used service: No Current occupational status: disabled Cognitive needs: No Hearing needs: No Vision needs: No Questionnaire PHQ-9 Over the last 2 weeks, how often have you been bothered by any of the following problems? 1. Little interest or pleasure in doing things: not at all 2. Feeling down, depressed, or hopeless: not at all 3. Trouble falling or staying asleep, or sleeping too much: nearly every day 4. Feeling tired or having little energy: nearly every day 5. Poor appetite or overeating: not at all 6. Feeling bad about yourself - or that you are a failure or have let yourself or your family down: not at all 7. Trouble concentrating on things, such as reading the newspaper or watching television: not at all 8. Moving or speaking so slowly that other people could have noticed. Or the opposite - being so fidgety or restless that you have been moving around a lot more than usual: not at all 9. Thoughts that you would be better off or of hurting yourself in some way: not at all Total score: 6 Depression Screening Interpretation: Negative Depression Screening Done: Yes 71843 - PHQ-9 Billing: Yes Source: Developed by Drs. John Laboy, Jazmin Saavedra, Garett Salinas and colleagues, with an educational martín from [employer]. Thrive Questionnaire Date Thrive assessed: 09/07/25 I am a: Patient What is your living situation today?: I have a steady place to live Within the past 12 months, did the food you bought not last and you didn't have the money to get more?: Sometimes True Within the past 12 months, did you worry whether your food would run out before you got money to buy more?: Often true Do you have trouble paying for medicines?: No Do you have trouble getting transportation to medical appointments?: Yes Do you have trouble paying your heating and electricity bill?: Yes Do you have trouble taking care of your child, family member or friend?: No Do you have trouble with day-to-day activities such as bathing, preparing meals, shopping, managing finances, etc.?: No Are you currently unemployed and looking for a job?: No Are you interested in more education?: No Currently or been in a relationship where the following occur: No concerns reported THRIVE Score: 4 ODILIA-7 AMB Questionnaire ODILIA-7 Date ODILIA - 7 assessed: 10/01/25 Worrying too much about different things: 3 = Nearly every day Source: Developed by Drs. John Laboy, Garett Flower and colleagues, with an educational martín from [employer]. ODILIA-7 Assessment Billing ODILIA-7 Assessment Tool: ODILIA-7 Assessment 41222 Review of Systems Narrative Review of Systems - Neurological: Reports occasional migraines. - Respiratory: Reports sleep apnea. - Gastrointestinal: Reports heartburn/gastritis. Reports normal bowel movements. - Genitourinary: Reports normal urination. Denies menses. - Musculoskeletal: Reports lower back pain when standing or walking too much. Reports a burning sensation in one leg with prolonged walking. - Constitutional: Reports issues with sleep, describing it as somewhat okay. - Skin: Reports getting cold sores. 10-point ROS reviewed and negative except as noted in HPI Physical exam (Primary Care) Vital Signs: Last Vital Signs Temp 97.5 F 10/01/25 16:07 Pulse 75 10/01/25 16:07 Resp 20 10/01/25 16:07 BP 100/59 L 10/01/25 16:07 Pulse Ox 95 10/01/25 16:07 Oxygen Delivery Method Room Air 10/01/25 16:07 BMI result Body Mass Index 44.1 Tobacco/Smoking Status: Tobacco use Status Tobacco use date assessed 10/01/25 10/01/25 16:09 Patient Tobacco Use Status Never used Tobacco 10/01/25 16:07 e-Cigarette/Vaping Use Never Used 10/01/25 16:09 PHQ-9: PHQ-9 Score PHQ-9: Total score 6 10/01/25 16:34 Depression Screening Interpretation: Negative Thrive Assessment: Date of Thrive Assessment Date Thrive assessed 09/07/25 10/01/25 15:58 Currently or been in a relationship where the following occur: No concerns reported Narrative Physical Exam General: Well-appearing, in no acute distress. Vital signs: Within normal limits. HEENT: Normocephalic, atraumatic. PERRLA, EOMI. Conjunctiva clear, sclera anicteric. Oropharynx clear, mucous membranes moist. TMs intact bilaterally. Neck: Supple, no lymphadenopathy, no thyromegaly, no JVD or carotid bruits. Presence of skin tags noted. Cardiovascular: RRR, normal S1/S2, no murmurs, rubs, or gallops. Peripheral pulses 2+ and symmetric. No edema. Respiratory: Lungs clear to auscultation bilaterally, no wheezes, rales, or rhonchi. Normal effort. Abdomen: Soft, non-tender, non-distended. Normoactive bowel sounds. No hepatosplenomegaly, no masses. MSK: Full range of motion, no joint swelling or deformity. Normal gait. History of bilateral total knee replacements. Reports burning sensation from foot to below the knee. Skin: Warm, dry, intact. No rashes, lesions, or pallor. Presence of skin tags noted. Neuro: Alert and oriented x3. Cranial nerves II-XII intact. Strength 5/5 throughout. Sensation intact. Reflexes 2+ symmetric. Normal coordination and gait. Psych: Appropriate mood and affect. Normal judgment and insight. Results AMB Hemoglobin A1c AMB Hemoglobin A1c 9.9 % Last Edit by Vinay Rizo CMA on 10/01/25 16:39 Coding Level of Care Code New Pt Level 4 (39202) Diagnoses Diabetes type 2 E11.9 Hypothyroidism E03.9 Peripheral neuropathy G62.9 Screening for diabetic retinopathy Z13.5 Migraine without aura and without status migrainosus, not intractable G43.009 Intractability: not intractable Status migrainosus presence: without status migrainosus Insomnia, unspecified type G47.00 Insomnia type: unspecified Learning disability F81.9 Skin tag L91.8 Additional Codes ODILIA-7 Assessment Billing - ODILIA-7 Assessment Tool: ODILIA-7 Assessment 71161 ([id number]) PHQ-9 - 07012 - PHQ-9 Billing: Yes ([id number]) Assessment & Plan Assessment & Plan (1) Diabetes type 2: Code(s): E11.9 - Type 2 diabetes mellitus without complications Category: Medical (2) Hypothyroidism: Code(s): E03.9 - Hypothyroidism, unspecified Category: Medical (3) Peripheral neuropathy: Code(s): G62.9 - Polyneuropathy, unspecified Category: Medical (4) Screening for diabetic retinopathy: Code(s): Z13.5 - Encounter for screening for eye and ear disorders Category: Medical (5) Migraine without aura: Code(s): G43.009 - Migraine without aura, not intractable, without status migrainosus Category: Medical Qualifiers: Intractability: not intractable Status migrainosus presence: without status migrainosus Qualified Code(s): G43.009 - Migraine without aura, not intractable, without status migrainosus (6) Insomnia: Onset Date: ~11/17/24 Code(s): G47.00 - Insomnia, unspecified Category: Medical Qualifiers: Insomnia type: unspecified Qualified Code(s): G47.00 - Insomnia, unspecified (7) Learning disability: Code(s): F81.9 - Developmental disorder of scholastic skills, unspecified Category: Medical (8) Skin tag: Code(s): L91.8 - Other hypertrophic disorders of the skin Category: Medical Plan Consent Patient was informed and verbally consented to the use of an ambient scribe for clinic note documentation during this visit. Plan 1. Type 2 Diabetes Mellitus - Laboratory tests ordered including hemoglobin A1c, CBC, and a comprehensive metabolic panel to assess overall health and glycemic control. - Referral placed for podiatry for a diabetic foot exam. - Referral placed for ophthalmology for a diabetic eye exam. - Referral placed for a hydroelectric mechanic. - Referral placed for a childbirth educator (nurse navigator). - Will manage diabetes in-house and adjust medications after reviewing lab results. - Scheduled a follow-up visit in two weeks to discuss lab results. 2. Hypothyroidism - Continue levothyroxine 100 mcg daily. - TSH and free T4 levels will be checked to assess the need for medication adjustment. 3. General Health Screening - Comprehensive lab work ordered including CBC, CMP, lipid panel, hepatitis B, hepatitis C, HIV, syphilis, B12, folate, and vitamin D. - Urinalysis ordered. - The patient was offered to have her Pap smear performed in the family medicine clinic or be referred to an CABLE INSTALLER REPAIRER HELPER. - Patient advised to continue with annual mammograms. 4. Insomnia - Patient to follow up with her neurology provider to discuss the ineffectiveness of her current eszopiclone dosage. 5. Skin Tags - The patient expressed a desire to have her neck skin tags removed. - Patient advised to schedule a separate appointment for the removal procedure. 6. Social Determinants Of Health - A request was made to arrange transportation services for the patient to facilitate attendance at medical appointments. Discussion Notes I introduced myself to the patient, Alison, a 45-year-old female who presented as a new patient to [facility]. We reviewed her extensive past medical history including type 2 diabetes, hypothyroidism, migraines, sleep apnea, peripheral neuropathy, GERD, and insomnia. I explained that I would be ordering a comprehensive set of blood tests to get an overview of her health, including a complete blood count, comprehensive metabolic panel, hemoglobin A1c, lipid panel, and various vitamin and infectious disease screenings. We discussed the plan to manage her diabetes, and I explained that I typically manage this condition myself without an endocrinology referral unless it becomes unmanageable. I informed her that referrals would be placed for a law professor, supervisor packing room, hydroelectric mechanic, and a childbirth educator to provide comprehensive diabetic care. We also discussed her need for transportation, and I arranged for my MA to set up transportation services for her appointments. Regarding health maintenance, I noted she is due for a Pap smear and that I could perform it or refer her to an OBGYN, per her preference. I also advised she should have annual mammograms. I informed her that she could get her blood work done at the lab starting tomorrow and that we would schedule a follow-up appointment in two weeks to review all the results and adjust her care plan accordingly. The patient agreed with the proposed plan. Patient Instructions - Please go to the lab to have your blood drawn. You can go tomorrow morning when they open at 9:00 AM. - We have placed referrals for you to see a foot doctor (law professor), an eye doctor (supervisor packing room), a hydroelectric mechanic, and a childbirth educator. They will contact you to schedule appointments. - We will help set up transportation services for you to get to your medical appointments. - You will need a follow-up appointment in two weeks to discuss your lab results and talk about the next steps for your treatment. - If you would like to have the skin tags on your neck removed, you can make a separate appointment for that procedure. - Continue taking your current medications as prescribed. Make sure to follow up with your neurology specialist about your sleep medication, as you feel it is not working well. Medical Decision Making The patient is a 45-year-old female presenting as a new patient to establish care. Her medical history is complex, with multiple chronic conditions, most notably poorly controlled type 2 diabetes managed with a basal-bolus insulin regimen. Given her history of hyperglycemia requiring hospitalization, a baseline hemoglobin A1c is crucial to assess her glycemic control over the past three months and guide adjustments to her insulin therapy. My goal is to manage her diabetes within my scope as a family medicine physician, avoiding an endocrinology referral unless necessary. To address potential diabetic complications and ensure comprehensive care, referrals to podiatry, ophthalmology, a hydroelectric mechanic, and a childbirth educator are warranted. The patient's report of a new burning sensation in her leg, similar to a previous symptom that responded to a corticosteroid injection, is concerning for worsening peripheral neuropathy, which will be monitored. Her current use of gabapentin for this is noted. Comprehensive labs, including a CBC, CMP, lipid panel, and vitamin levels, were ordered to establish a baseline and screen for other comorbidities. A TSH and T4 will be checked to ensure her hypothyroidism is adequately managed on her current dose of levothyroxine. The patient's reported transportation difficulties are a significant barrier to care; therefore, arranging transportation services is a roland part of the plan to improve adherence to follow-up and specialist appointments. A follow-up in two weeks will allow for a thorough review of all diagnostic results and the formulation of a long-term, multidisciplinary management plan. Total Time Statement 30 min Total time spent caring for the patient today includes pre-visit chart review, documentation, review of laboratory and diagnostic imaging results, medication reconciliation, medically necessary evaluation, counseling on diagnoses, care coordination, ordering appropriate tests and medications, review of tests performed by other providers, reporting test results to the patient, and communication with other healthcare providers. Orders: Orders Hepatitis B Surface Antigen Today Z13.9 - Encounter for screening, unspecified Syphilis Screen Today Z13.9 - Encounter for screening, unspecified Comprehensive Met. Panel Today Z13.9 - Encounter for screening, unspecified TSH reflex Free T4 Today Z13.9 - Encounter for screening, unspecified UA CC w/rflx Micro + Cult Today Z13.9 - Encounter for screening, unspecified Vitamin B12 and Folate Today Z13.9 - Encounter for screening, unspecified Hepatitis B Surface Antibody Today Z13.9 - Encounter for screening, unspecified Complete Blood Count Auto Diff Today Z13.9 - Encounter for screening, unspecified Hepatitis C Antibody Today Z13.9 - Encounter for screening, unspecified HIV Ab/Ag Today Z13.9 - Encounter for screening, unspecified AMB Hemoglobin A1c Today Z13.9 - Encounter for screening, unspecified Lipid Panel Today Z13.9 - Encounter for screening, unspecified Hemoglobin A1c Today Z13.9 - Encounter for screening, unspecified Magnesium Today Z13.9 - Encounter for screening, unspecified Vitamin D 1,25 dihydroxy Today Z13.9 - Encounter for screening, unspecified Microalbumin, Random (w Creat) Today Z13.9 - Encounter for screening, unspecified Referrals Nutrition/Dietitian Referral E11.9 - Type 2 diabetes mellitus without complications Podiatry Referral E11.9 - Type 2 diabetes mellitus without complications Ophthalmology Referral Z13.5 - Encounter for screening for eye and ear disorders Nurse Navigator Referral E11.9 - Type 2 diabetes mellitus without complications
[2025-10-01 16:07] VITALS: BP 100/59; PULSE 75; RESP 20; TEMP 36.4; O2SAT 95; BMI 44.1
== END 2025-10-01 16:37 | disposition home or self-care (01) ==
LOC: HO.HMCFMS 15:42
PROVIDERS: PCP Student in an Organized Health Care Education/Training Program; Visit Provider Student in an Organized Health Care Education/Training Program
DX: E11.9 Type 2 diabetes mellitus without complications (principal); E03.9 Hypothyroidism, unspecified; G62.9 Polyneuropathy, unspecified; Z13.5 Encounter for screening for eye and ear disorders; G43.009 Migraine without aura, not intractable, without status migrainosus; G47.00 Insomnia, unspecified; F81.9 Developmental disorder of scholastic skills, unspecified; L91.8 Other hypertrophic disorders of the skin; Z13.9 Encounter for screening, unspecified

== ENCOUNTER → 2025-10-01 15:41 | Outpatient (BNVA) | payer OTHER, SELFPAY | PROVIDERS: PCP Student in an Organized Health Care Education/Training Program; Visit Provider Student in an Organized Health Care Education/Training Program | DX: E11.9 Type 2 diabetes mellitus without complications (principal); E03.9 Hypothyroidism, unspecified; G62.9 Polyneuropathy, unspecified; G43.009 Migraine without aura, not intractable, without status migrainosus; G47.00 Insomnia, unspecified; F81.9 Developmental disorder of scholastic skills, unspecified; L91.8 Other hypertrophic disorders of the skin | CPT/HCPCS: 83036; 96127; 99202 ==

== ENCOUNTER 2025-10-03 15:47 | Outpatient (REF) | payer OTHER, SELFPAY ==
[2025-10-03 18:18] LABS: MANUAL DIFF FLAG NO
[2025-10-03 18:46] LABS: Hematocrit 43.4 % (37.0-47.0); Hemoglobin 14.5 g/dl (12.0-16.0); Imm Gran Abs Auto 0.02 X10*3/uL (0.00-0.03); Imm Gran Pct Auto 0.2 % (0.0-0.4); Lymphocytes Absolute Auto 2.1 X10*3/uL (1.2-4.9); Mean Corpuscular HGB Conc 33.4 g/dl (31.0-35.0); Mean Corpuscular Hemoglobin 28.8 pg (27.0-33.0); Mean Corpuscular Volume 86.3 fL (80.0-98.0); NRBC Abs Auto 0.000 X10*3/uL (0.0-0.012); NRBC Pct Auto 0.0 /100WBC (0.0-0.2); Platelet Count 320 X10*3/uL (160-400); Red Blood Count 5.03 X10*6/uL (4.20-5.50); White Blood Count 8.7 X10*3/uL (4.8-10.8)
[2025-10-03 18:54] LABS: Alanine Aminotransferase 64 U/L (0-31); Albumin Level 4.5 g/dL (3.5-5.0); Alkaline Phosphatase 149 U/L (39-117); Anion Gap 14 (12-20); Aspartate Amino Transferase 40 U/L (5-31); Blood Urea Nitrogen 15 mg/dL (9-16); Calcium 9.0 mg/dL (8.4-10.2); Carbon Dioxide 27 mmol/L (22-29); Chloride 108 mmol/L (96-108); Cholesterol 196 mg/dL (<200); Estimated Glomerular Filt Rate > 60; HDL Cholesterol 41 mg/dL (>40); Magnesium 2.0 mg/dL (1.6-2.6); Potassium 3.6 mmol/L (3.3-5.1); Sodium 145 mmol/L (135-145); Total Protein 7.1 g/dL (6.5-8.0); Triglycerides 154 mg/dL (<150)
[2025-10-03 19:32] LABS: Microalbum/Creatinine Ratio Ur 8.3 ug/mg cr (<30)
[2025-10-03 19:40] LABS: Appearance Urine Cloudy; Glucose Urine UA 500 mg/dL (Negative); PH 6.0 (5.0-9.0); Specific Gravity - Urine >= 1.030 (1.005-1.025)
[2025-10-03 20:06] LABS: Folate 11.8 ng/mL (> or = 4.0); Vitamin B12 437 pg/mL (200-900)
[2025-10-03 20:32] LABS: Free T4 (Free Thyroxine) 0.74 ng/dL (0.71-1.85)
--- OUTSIDE RECORDS SUMMARY | 2025-10-04 00:34 | XMS_ITS | Encounter Summary ---
Author Organization [facility] Address [address] [place] [address] Care Team Providers Care Brim Blocker Name Role Phone Sabas Spain MD Primary Care Provider [phone] Encounter Details Date Type Department Care Team (Late st Contact Info) Description 03/22/2025 Lab Requisition [facility] - Main Lab [address] [facility] [place] [address] Sabas Spain MD [address] [place] [address] [address] [place], [phone] Essential (primary) hypertension Social History Tobacco Use Types Packs/Day Years Used Date Smoking Tobacco: Former Cigarettes 1 Q uit: 10/25/2009 Smokeless Tobacco: Former Alcohol [...] on file documented as of this encounter Procedures Procedure Name Priority Date/Time Associated Diagnosis Comments COMPLETE BLOOD COUNT Routine 03/22/2025 5:30 AM EDT Essential (primary) hypertension COMPREHENSIVE METABOLIC PANEL Routine 03/22/2025 5:30 AM EDT Essential (primary) hypertension documented in this encounter Results * (ABNORMAL) Comprehensive metabolic panel (03/22/2025 5:30 AM EDT) Sodium 134 133 - 145 mmol/L LAB CHEMISTRY METHOD 03/22/2025 9:02 AM [facility] Potassium 4.6 3.5 - 5.5 mmol/L LAB CHEMISTRY METHOD 03/22/2025 9:02 AM [facility] Chloride 99 96 - 110 mmol/L LAB CHEMISTRY METHOD 03/22/2025 9:02 AM [facility] CO2 27 21 - 32 mmol/L LAB CHEMISTRY METHOD 03/22/2025 9:02 AM [facility] Anion Gap 8 3 - 11 LAB CHEMISTRY METHOD 03/22/2025 9:02 AM [facility] Glucose 314(H) 70 - 100 mg/dL LAB CHEMISTRY METHOD 03/22/2025 9:02 AM [facility] Comment:Results verified by repeat testing BUN 16 5 - 25 mg/dL LAB CHEMISTRY METHOD 03/22/2025 9:02 AM [facility] Creatinine 0.85 0.50 - 1.10 mg/dL LAB CHEMISTRY METHOD 03/22/2025 9:02 AM [facility] eGFR 88 >=60 mL/min/1. 73m2 LAB CHEMISTRY METHOD 03/22/2025 9:02 AM [facility] Comment:Calculation based on the Chronic Kidney Disease Epidemiology Collaboration (CKD-EPI) equation refit without adjustment for race. BUN/Creatinine Ratio 18.8 LAB CHEMISTRY METHOD 03/22/2025 9:02 AM [facility] Calcium 9.3 8.5 - 10.5 mg/dL LAB CHEMISTRY METHOD 03/22/2025 9:02 AM [facility] AST (SGOT) 24 10 - 42 unit/L LAB CHEMISTRY METHOD 03/22/2025 9:02 AM [facility] ALT (SGPT) 37 10 - 60 unit/L LAB CHEMISTRY METHOD 03/22/2025 9:02 AM [facility] Alkaline Phosphatase 138(H) 42 - 121 unit/L LAB CHEMISTRY METHOD 03/22/2025 9:02 AM EDT [facility] Total Protein 6.5 6.0 - 8.0 g/dL LAB CHEMISTRY METHOD 03/22/2025 9:02 AM [facility] Albumin 3.4 3.2 - 5.0 g/dL LAB CHEMISTRY METHOD 03/22/2025 9:02 AM [facility] Total Bilirubin 0.4 0.0 - 1.4 mg/dL LAB CHEMISTRY METHOD 03/22/2025 9:02 AM [facility] Blood Venous blood specimen / Unknown Venipuncture / Unknown 03/22/2025 5:30 AM EDT 03/22/2025 7:29 AM EDT us Sabas Spain MD LAB BLOOD ORDERABLES Final Resul t [facility] [address] [place] [address], [place] [phone] * (ABNORMAL) Complete blood count (03/22/2025 5:30 AM EDT) WBC 14.1(H) 4.8 - 10.8 K/mcL LAB HEMETOLOGY METHOD 03/22/2025 7:56 AM T [facility] RBC 4.30 3.80 - 4.80 M/mcL LAB HEMETOLOGY METHOD 03/22/2025 7:56 AM EDT [facility] Hemoglobin 12.3 11.5 - 16.0 g/dL LAB HEMETOLOGY METHOD 03/22/2025 7:56 AM [facility] Hematocrit 38.7 35.0 - 47.0 % LAB HEMETOLOGY METHOD 03/22/2025 7:56 AM EDT [facility] MCV 90.6 79.0 - 98.0 FL LAB HEMETOLOGY METHOD 03/22/2025 7:56 AM EDT [facility] MCH 28.8 27.0 - 32.0 pcg LAB HEMETOLOGY METHOD 03/22/2025 7:56 AM EDT [facility] MCHC 31.8(L) 32.0 - 37.0 g/dL LAB HEMETOLOGY METHOD 03/22/2025 7:56 AM EDT [facility] RDW 14.0 11.0 - 15.0 % LAB HEMETOLOGY METHOD 03/22/2025 7:56 AM EDT [facility] Platelets 474(H) 130 - 400 K/mcL LAB HEMETOLOGY METHOD 03/22/2025 7:56 AM EDT [facility] MPV 9.8 7.0 - 11.0 FL LAB HEMETOLOGY METHOD 03/22/2025 7:56 AM EDT [facility] NRBC 0.0 <1.0 % LAB HEMETOLOGY METHOD 03/22/2025 7:56 AM T [facility] NRBC Absolute 0.00 <0.10 K/mcL LAB HEMETOLOGY METHOD 03/22/2025 7:56 AM T [facility] Blood Venous blood specimen / Unknown Venipuncture / Unknown 03/22/2025 5:30 AM EDT 03/22/2025 7:29 AM EDT us Sabas Spain MD LAB BLOOD ORDERABLES Final Resul t [facility] [address] [place] [address], documented in this encounter Visit Diagnoses Diagnosis Essential (primary) hypertension Unspecified essential hypertension documented in this encounter Care Teams Brim Blocker Relationship Specialty Start Date End Date Sabas Spain MD [address] [place] [address], [phone] PCP - General Family Medicine 03/22/25 documented as of this encounter
--- OUTSIDE RECORDS SUMMARY | 2025-10-04 00:34 | XMS_ITS | Clinical Summary ---
Author Organization [facility] Address [address] [place] [address] Phone Care Team Providers Care Painter Maintenance Name Role Phone Sabas Spain MD Primary Care Provider [phone] Allergies Active Allergy Reactions Criticality Noted Date Comments Other 07/07/2017 Seasonal Allergies Medications zolpidem (AMBIEN) 5 mg tablet Take 1 tablet by mouth at bedtime as needed for Insomnia. 1 Active traZODone (DESYREL) 50 mg tablet TAKE 1 TABLET BY MOUTH EVERY DAY AT BEDTIME 3 Active SITagliptin phosphate (Januvia) 100 mg tablet Take 1 tablet by mouth daily. 1 Active omeprazole (PriLOSEC) [address] capsule TAKE 1 CAPSULE BY MOUTH EVERY DAY 1 Active metroNIDAZOLE (METROGEL) 0.75 % (37.5mg/5 gram) vaginal gel Insert vaginally at bedtime x 5 nights 1 Active metFORMIN XR (GLUCOPHAGE-XR ) 500 mg 24 hr tablet TAKE 1 TABLET BY MOUTH DAILY. 2 Active meloxicam (Mobic) 15 mg tablet Take 1 Tablet by mouth daily. 3 Active levothyroxine (SYNTHROID, LEVOTHROID) 200 mcg tablet TAKE 1 TABLET BY MOUTH EVERY DAY 2 Active levothyroxine (SYNTHROID, LEVOTHROID) 175 mcg tablet TAKE 1 TABLET BY MOUTH EVERY DAY 1 Active levothyroxine (SYNTHROID, LEVOTHROID) 150 mcg tablet Take 1 Tab by mouth daily. Take med first thing in the morning on empty stomach. With only water. Wait 30 minutes to 1 hour minimum before other food/medication/ot her things to drink 0 Active levonorgestreL (MIRENA) 21 mcg/24hr (up to 8 yrs) 52 mg IUD 1 Each by Intrauterine route once. Active insulin lispro (HumaLOG KwikPen) 100 unit/mL injection pen INJECT THREE TIMES A DAY PER SLIDING SCALE WITH MEALS 100-150: 2 UNITS; 151-200: 4 UNITS; 201-250: 6 UNITS; 251-300: 8 UNITS; 301-350: 10 UNITS; 351-400: 12 UNITS 3 Active insulin glargine (Lantus Solostar U-100 Insulin) 100 unit/mL (3 mL) injection pen INJECT 10 UNITS INTO THE SKIN AT BEDTIME. 2 Active lidocaine-hydr ocortisone-aileen e 2.8-0.55 % gel Place 1 Film vaginally 3 times daily as needed (pain). Apply topiclly to affected region thre times talley 1 Active fluconazole (DIFLUCAN) 150 mg tablet Take one tablet orally in one single dose. May take 2nd tablet in 3 days if no improvement. 1 Active cetirizine (ZyrTEC) 10 mg tablet TAKE 1 TABLET BY MOUTH DAILY. 3 Active atorvastatin (LIPITOR) 10 mg tablet Take 1 tablet by mouth daily. 1 Active ammonium lactate (LAC-HYDRIN) 12 % lotion Apply to soles of feet daily. At night wear socks to bed 2 Active mv,josé,iron,mn /folic acid/chol (CUZS-LIYS-ACG LS, PABA, ORAL) Take 2 Tabs by mouth daily. 0 Active alcohol swabs pads, medicated USE THREE TIMES DAILY DIRECTED 2 Active blood-glucose meter kit USE TO TEST BLOOD SUGAR THREE TIMES DAILY 1 Active pen needle, diabetic (Easy Comfort Pen [place]) 33 gauge x 1/4 needle USE 1 NEEDLE SUBCUTANEOUSLY 4 TIMES DAILY 30 DAY(S) 2 Active flash glucose scanning reader ([employer] Annamarie 14 Day [place]) misc 1 Device by Does not apply route continuous. Use reader to scan sensor at least every 8 hours 1 Active flash glucose scanning reader (FreeStyle Annamarie 2 [place]) misc Use daily to check blood sugars 6-10 times a day. 1 Active flash glucose sensor (FreeStyle Annamarie 14 Day Sensor) kit 1 Device by Does not apply route every 14 days. Apply to the back of the arm every 14 days. 1 Active blood sugar diagnostic (FreeStyle Lite Strips) test strip USE DIRECTED THREE TIMES DAILY 2 Active pen needle, diabetic 32 gauge x 32 needle Use one daily with insulin. 1 Active lancets (Safety-Let Lancets) 30 gauge misc USE DIRECTED TO TEST THREE TIMES DAILY 3 Active Active Problems Problem Noted Date Diagnosed Date [...] GERD (gastroesophageal reflux disease) 9 Hypothyroid 10/11/2009 Immunizations Immunization Administration Dates Next Due H1N1 Inj Preservative Free 02/07/2010 Influenza Quadravalent, MDCK , 0.5ml, with preservative (Flucelvax) 6mo and older 07/07/2017 Influenza trivalent, 0.5mL, preservative free (Fluarix; FluLaval; Fluzone) ages 6mo and older (Afluria) 3 years and older 06/28/2020,07/25/2014,08/31/2012,2010 Tdap Tetanus diptheria acell ular pertussis (Boostrix; Adacel) 7yo and older 02/07/2010 Surgical History Surgery Date Site/Laterality Comments OTHER SURGICAL HISTORY PROCEDURE: GA RPR LAC 2.5 CM/< MOUTH&/ANT TWO-THIRDS TONG SECTION PROCEDURE: HISTORICAL DELIVERY TOTAL KNEE ARTHROPLASTY 12/2019 Left PROCEDURE: GA ARTHRP KNE CONDYLE&PLATU MEDIAL&LAT COMPARTMENTS Medical History [...] 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 edema (CMS/HCC V24, CMS/HCC V28) DX:Diabetes mellitus due to underlying condition with 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 edema ([facility]) IBS (irritable bowel syndrome) 05/22/2019 D X:IBS (irritable bowel syndrome) Total knee replacement status 02/01/2020 DX :Total knee replacement status; COMMENT: 01/11 left TKR Family history of thyroid cancer DX:Family history of thyroid cancer Genital herpes 04/18/2021 DX:Genital herpe s; COMMENT: positive culture IUD (intrauterine device) in place DX:IUD (intrauterine device) in place; COMMENT: Mirena, 02/18/2021 Family History Medical History Relation Name [...] on file Sexual Orientation Not on file Last Filed Vital Signs Vital Sign Reading [...] Last Done Comments Breast Cancer Screening 1982 Diabetes: Annual Foot Exam 1992 Diabetes: Annual Retina Eye Exam 1992 Hepatitis B Vaccines (1 of 3 - 19+ 3-dose series) 2001 Pneumococcal Vaccine: Pediatrics (0 to 5 Years) and At-Risk Patients (6 to 49 Years) (1 of 2 - PCV) 2001 HPV Vaccines (1 - 3-dose SCDM series) 2009 Cervical Cancer Screening: HPV 07/23/2022 07/23/2017 Social Influencers of Health Screening 09/21/2022 Diabetes: Annual Urine Albumin-Creatinine Ratio (uACR) 10/04/2022 12/04/2020 Diabetes: Blood Sugar Control Test (HGBA1C) 10/04/2022 03/29/2021 Depression Screening 10/25/2024 COVID-19 Vaccine ( season) 2025 Influenza Vaccine (#1) 2025 0, 06/21/2018, 07/07/2017, Additional history exists DTaP,Tdap,and Td Vaccines (3 - Td or Tdap) 09/16/2025 09/16/2015, 02/07/2010 Cholesterol Screening (Lipid Panel) 12/04/2025 12/04/2020 Diabetes: Annual GFR (Glomerular Filtration Rate) 03/22/2026 03/22/2025, 06/29/2020 RSV Immunization Adult Patients (1 - 1-dose 75+ series) 2057 HIV Screening Completed 09/11/2020 Hepatitis C Screening [...] patient's age to complete this topic Meningococcal B Vaccine Aged Out No l onger eligible based on patient's age to complete this topic RSV Immunization Patients Under 20 months Aged Out No longer eligible based on patient's age to complete this topic Varicella Vaccines Aged Out No longer eligible based on patient's age to complete this topic Procedures Procedure Name Priority Date/Time Associated Diagnosis Comments COMPREHENSIVE METABOLIC PANEL Routine 03/22/2025 5:30 AM EDT Essential (primary) hypertension HEMOGLOBIN A1C Routine 03/29/2021 HM URINE ALBUMIN CREATININE RATIO Routine 12/04/2020 LIPID PANEL Routine 12/04/2020 HM HEPATITIS C SCREENING Routine 09/11/2020 HIV SCREENING Routine 09/11/2020 HM HPV Routine 07/23/2017 from Last 3 Months or Most Recently Relevant to Health Maintenance Results * (ABNORMAL) Comprehensive metabolic panel (03/22/2025 5:30 AM EDT) Sodium 134 133 - 145 mmol/L LAB CHEMISTRY METHOD 03/22/2025 9:02 AM [facility] Potassium 4.6 3.5 - 5.5 mmol/L LAB CHEMISTRY METHOD 03/22/2025 9:02 AM [facility] Chloride 99 96 - 110 mmol/L LAB CHEMISTRY METHOD 03/22/2025 9:02 AM [facility] CO2 27 21 - 32 mmol/L LAB CHEMISTRY METHOD 03/22/2025 9:02 AM [facility] Anion Gap 8 3 - 11 LAB CHEMISTRY METHOD 03/22/2025 9:02 AM [facility] Glucose 314(H) 70 - 100 mg/dL LAB CHEMISTRY METHOD 03/22/2025 9:02 AM [facility] Comment:Results verified by repeat testing BUN 16 5 - 25 mg/dL LAB CHEMISTRY METHOD 03/22/2025 9:02 AM [facility] Creatinine 0.85 0.50 - 1.10 mg/dL LAB CHEMISTRY METHOD 03/22/2025 9:02 AM [facility] eGFR 88 >=60 mL/min/1. 73m2 LAB CHEMISTRY METHOD 03/22/2025 9:02 AM [facility] Comment:Calculation based on the Chronic Kidney Disease Epidemiology Collaboration (CKD-EPI) equation refit without adjustment for race. BUN/Creatinine Ratio 18.8 LAB CHEMISTRY METHOD 03/22/2025 9:02 AM [facility] Calcium 9.3 8.5 - 10.5 mg/dL LAB CHEMISTRY METHOD 03/22/2025 9:02 AM [facility] AST (SGOT) 24 10 - 42 unit/L LAB CHEMISTRY METHOD 03/22/2025 9:02 AM [facility] ALT (SGPT) 37 10 - 60 unit/L LAB CHEMISTRY METHOD 03/22/2025 9:02 AM EDT [facility] Alkaline Phosphatase 138(H) 42 - 121 unit/L LAB CHEMISTRY METHOD 03/22/2025 9:02 AM EDT [facility] Total Protein 6.5 6.0 - 8.0 g/dL LAB CHEMISTRY METHOD 03/22/2025 9:02 AM EDT [facility] Albumin 3.4 3.2 - 5.0 g/dL LAB CHEMISTRY METHOD 03/22/2025 9:02 AM T [facility] Total Bilirubin 0.4 0.0 - 1.4 mg/dL LAB CHEMISTRY METHOD 03/22/2025 9:02 AM EDT [facility] Blood Venous blood specimen / Unknown Venipuncture / Unknown 03/22/2025 5:30 AM EDT 03/22/2025 7:29 AM EDT Sabas Spain MD LAB BLOOD ORDERABLES Final Resul t [facility] [address] [place] [address], * (ABNORMAL) Hemoglobin A1c (03/29/2021) Pathologist [facility] Hemoglobin A1C 9.2(A) <=6.5 % Blood Venous blood specimen / Unknown Historical Provider LAB BLOOD ORDERABLES Hannah l Result * Urine Albumin Creatinine Ratio (12/04/2020) Pathologist [facility] Urine Albumin Creatinine Ratio Abstracted Historical Provider HEALTH MAINTENANCE Final Result * (ABNORMAL) Lipid panel (12/04/2020) Pathologist [facility] LDL/HDL Ratio 4 0 - 4 Triglycerides 184(A) 0 - 150 mg/dL Cholesterol 172 0 - 200 mg/dL HDL 42 >=40 mg/dL LDL Cholesterol 94 0 - 100 mg/dL Blood Venous blood specimen / Unknown Historical Provider LAB BLOOD ORDERABLES Hannah l Result * HIV Screening (09/11/2020) HIV Screening Abstracted Historical Provider HEALTH MAINTENANCE Final Result * Hepatitis C Screening (09/11/2020) Pathologist [facility] Hepatitis C Screening Abstracted Historical Provider HEALTH MAINTENANCE Final Result * Cervical Cancer Screening: HPV (07/23/2017) Pathologist [facility] Cervical Cancer Screening: HPV Negative, Abstracted Historical Provider HEALTH MAINTENANCE Final Result from Last 3 Months or Most Recently Relevant to Health Maintenance Insurance [address] [address] [employer] Care Teams Painter Maintenance Relationship Specialty Start Date End Date Sabas Spain MD [address] [place] [address], [phone] PCP - General Family Medicine 03/22/25
--- OUTSIDE RECORDS SUMMARY | 2025-10-04 00:34 | XMS_ITS | Encounter Summary ---
Author Organization [facility] Address [address] [place] [address] Care Team Providers Care Medical Historian Name Role Phone Sabas Spain MD Primary Care Provider [phone] Encounter Details Date Type Department Care Team (Late st Contact Info) Description 03/25/2025 Lab Requisition [facility] - Main Lab [address] [facility] [place] [address] Sabas Spain MD [facility] [address] [phone] Essential (primary) hypertension Social History Tobacco Use [...] hypertension documented in this encounter Care Teams Medical Historian Relationship Specialty Start Date End Date Sabas Spain MD [address] [facility] [address] [facility] [phone] PCP - General Family Medicine 03/22/25 documented as of this encounter
--- OUTSIDE RECORDS SUMMARY | 2025-10-04 00:35 | XMS_ITS | Encounter Summary ---
Author Organization [facility] Address [address] [place] [address] Care Team Providers Care Marine Pipe Welder Name Role Phone Sabas Spain MD Primary Care Provider [phone] Encounter Details Date Type Department Care Team (Late st Contact Info) Description 05/24/2025 Lab Requisition [facility] - Main Lab [address] [place] [address] Rebecca Camargo MD [address] [facility] [address] [place] [phone] Acute vaginitis Social History Tobacco Use Types Packs/Day Years [...] Procedure Name Priority Date/Time Associated Diagnosis Comments VAGINITIS PATHOGENS BY PCR Routine 05/24/2025 12:00 AM EDT Acute vaginitis documented in this encounter Results * Vaginitis pathogens molecular study (05/24/2025 12:00 AM EDT) Trichomonas vaginalis Negative Negative 05/25/2025 9:34 AM EDT [facility] Gardnerella vaginalis Negative Negative 05/25/2025 9:34 AM EDT [facility] Dot Species Negative Negative 9:34 AM EDT [facility] Swab Vaginal structure / Unknown 05/24/2025 05/24/2025 5:57 PM EDT us Rebecca Camargo MD LAB MICROBIOLOGY - GENER AL ORDERABLES Final Result [facility] [address] [place] [address], documented in this encounter Visit Diagnoses Diagnosis Acute vaginitis Unspecified vaginitis and vulvovaginitis documented in this encounter Care Teams Marine Pipe Welder Relationship Specialty Start Date End Date Sabas Spain MD [address] [place] [phone] PCP - General Family Medicine 03/22/25 documented as of this encounter
[2025-10-04 04:13] LABS: Syphilis Screen Nonreactive (Nonreactive)
[2025-10-04 04:59] LABS: HBS Num1 6.74 mIU/mL (0-7.99); HBsAGNum1 0.54 S/CO (0.00-0.99); HIV Num 1 0.07 S/CO (0.00-0.99); Hepatitis B Surface Antigen Negative (Negative); ~HepC Num1 0.08 S/CO (0.00-0.79); ~Hepatitis B Surface Antibody NONREACTIVE (Nonreactive); ~Hepatitis C Antibody Nonreactive (Nonreactive)
== END 2025-10-03 15:48 | disposition home or self-care (01) ==
LOC: HO.HKASLDS 15:47
PROVIDERS: PCP Student in an Organized Health Care Education/Training Program; Visit Provider Student in an Organized Health Care Education/Training Program
DX: Z11.4 Encounter for screening for human immunodeficiency virus [HIV] (principal); Z11.59 Encounter for screening for other viral diseases; Z11.3 Encounter for screening for infections with a predominantly sexual mode of transmission
CPT/HCPCS: 36415; 80053; 80061; 81003; 82043; 82570; 82607; 82652; 82746; 83036; 83735; 84439; 84443; 85025; 86706; 86780; 86803; 87340; 87389

== ENCOUNTER 2025-10-19 15:37 | Outpatient (AMB) | payer OTHER, SELFPAY ==
--- OUTSIDE RECORDS SUMMARY | 2025-10-19 15:40 | XMS_ITS | Encounter Summary ---
Author Organization [facility] Address [address] [place] [address] Care Team Providers Care Bullet Lubricating Machine Operator Name Role Phone Sabas Spain MD Primary Care Provider [phone] Encounter Details Date Type Department Care Team (Late st Contact Info) Description 05/24/2025 Lab Requisition [facility] - Main Lab [address] [place] [address] Rebecca Camargo MD 299 [facility] [address] [place] [phone] Acute vaginitis Social History Tobacco Use Types [...] vaginalis Negative Negative 05/25/2025 9:34 AM EDT [facility] Gardnerella vaginalis Negative Negative 05/25/2025 9:34 AM EDT [facility] Dot Species Negative Negative 9:34 AM EDT [facility] Swab Vaginal structure / Unknown 05/24/2025 05/24/2025 5:57 PM EDT us Rebecca Camargo MD LAB MICROBIOLOGY - GENER AL ORDERABLES Final Result [facility] [address] [place] [address], documented in this encounter Visit Diagnoses Diagnosis Acute vaginitis Unspecified vaginitis and vulvovaginitis documented in this encounter Care Teams Bullet Lubricating Machine Operator Relationship Specialty Start Date End Date Sabas Spain MD [address] [place] [phone] PCP - General Family Medicine 03/22/25 documented as of this encounter
--- OUTSIDE RECORDS SUMMARY | 2025-10-19 15:40 | XMS_ITS | Encounter Summary ---
Author Organization [facility] Address [address] [place] [address] Care Team Providers Care Store Sales Consultant Name Role Phone Sabas Spain MD Primary Care Provider [phone] Encounter Details Date Type Department Care Team (Late st Contact Info) Description 03/22/2025 Lab Requisition [facility] - Main Lab [address] [facility] [place] [address] Sabas Spain MD [address] [place] [address] [address] [place], [phone] Essential (primary) hypertension Social History Tobacco [...] mmol/L LAB CHEMISTRY METHOD 03/22/2025 9:02 AM [facility] Potassium 4.6 3.5 - 5.5 mmol/L LAB CHEMISTRY METHOD 03/22/2025 9:02 AM [facility] Chloride 99 96 - 110 mmol/L LAB CHEMISTRY METHOD 03/22/2025 9:02 AM [facility] CO2 27 21 - 32 mmol/L LAB CHEMISTRY METHOD 03/22/2025 9:02 AM [facility] Anion Gap 8 3 - 11 LAB CHEMISTRY METHOD 03/22/2025 9:02 AM [facility] Glucose 314(H) 70 - 100 mg/dL LAB CHEMISTRY METHOD 03/22/2025 9:02 AM [facility] Comment:Results verified by repeat testing BUN 16 5 - 25 mg/dL LAB CHEMISTRY METHOD 03/22/2025 9:02 AM [facility] Creatinine 0.85 0.50 - 1.10 mg/dL LAB CHEMISTRY METHOD 03/22/2025 9:02 AM [facility] eGFR 88 >=60 mL/min/1. 73m2 LAB CHEMISTRY METHOD 03/22/2025 9:02 AM [facility] Comment:Calculation based on the Chronic Kidney Disease Epidemiology Collaboration (CKD-EPI) equation refit without adjustment for race. BUN/Creatinine Ratio 18.8 LAB CHEMISTRY METHOD 03/22/2025 9:02 AM [facility] Calcium 9.3 8.5 - 10.5 mg/dL LAB CHEMISTRY METHOD 03/22/2025 9:02 AM [facility] AST (SGOT) 24 10 - 42 unit/L LAB CHEMISTRY METHOD 03/22/2025 9:02 AM [facility] ALT (SGPT) 37 10 - 60 unit/L LAB CHEMISTRY METHOD 03/22/2025 9:02 AM [facility] Alkaline Phosphatase 138(H) 42 - 121 unit/L LAB CHEMISTRY METHOD 03/22/2025 9:02 AM EDT [facility] Total Protein 6.5 6.0 - 8.0 g/dL LAB CHEMISTRY METHOD 03/22/2025 9:02 AM [facility] Albumin 3.4 3.2 - 5.0 g/dL LAB CHEMISTRY METHOD 03/22/2025 9:02 AM [facility] Total Bilirubin 0.4 0.0 - 1.4 mg/dL LAB CHEMISTRY METHOD 03/22/2025 9:02 AM [facility] Blood Venous blood specimen / Unknown Venipuncture / Unknown 03/22/2025 5:30 AM EDT 03/22/2025 7:29 AM EDT us Sabas Spain MD LAB BLOOD ORDERABLES Final Resul t [facility] [address] [place] [address], [place] [phone] * (ABNORMAL) Complete blood count (03/22/2025 5:30 AM EDT) WBC 14.1(H) 4.8 - 10.8 K/mcL LAB HEMETOLOGY METHOD 03/22/2025 7:56 AM T [facility] RBC 4.30 3.80 - 4.80 M/mcL LAB HEMETOLOGY METHOD 03/22/2025 7:56 AM EDT [facility] Hemoglobin 12.3 11.5 - 16.0 g/dL LAB HEMETOLOGY METHOD 03/22/2025 7:56 AM [facility] Hematocrit 38.7 35.0 - 47.0 % LAB HEMETOLOGY METHOD 03/22/2025 7:56 AM EDT [facility] MCV 90.6 79.0 - 98.0 FL LAB HEMETOLOGY METHOD 03/22/2025 7:56 AM EDT [facility] MCH 28.8 27.0 - 32.0 pcg LAB HEMETOLOGY METHOD 03/22/2025 7:56 AM EDT [facility] MCHC 31.8(L) 32.0 - 37.0 g/dL LAB HEMETOLOGY METHOD 03/22/2025 7:56 AM EDT [facility] RDW 14.0 11.0 - 15.0 % LAB HEMETOLOGY METHOD 03/22/2025 7:56 AM EDT [facility] Platelets 474(H) 130 - 400 K/mcL LAB HEMETOLOGY METHOD 03/22/2025 7:56 AM EDT [facility] MPV 9.8 7.0 - 11.0 FL LAB HEMETOLOGY METHOD 03/22/2025 7:56 AM EDT [facility] NRBC 0.0 <1.0 % LAB HEMETOLOGY METHOD 03/22/2025 7:56 AM T [facility] NRBC Absolute 0.00 <0.10 K/mcL LAB HEMETOLOGY METHOD 03/22/2025 7:56 AM T [facility] Blood Venous blood specimen / Unknown Venipuncture / Unknown 03/22/2025 5:30 AM EDT 03/22/2025 7:29 AM EDT us Sabas Spain MD LAB BLOOD ORDERABLES Final Resul t [facility] [address] [place] [address], documented in this encounter Visit Diagnoses Diagnosis Essential (primary) hypertension Unspecified essential hypertension documented in this encounter Care Teams Store Sales Consultant Relationship Specialty Start Date End Date Sabas Spain MD [address] [place] [address], [phone] PCP - General Family Medicine 03/22/25 documented as of this encounter
--- OUTSIDE RECORDS SUMMARY | 2025-10-19 15:40 | XMS_ITS | Encounter Summary ---
Author Organization [facility] Address [address] [place] [address] Care Team Providers Care Box Strapper Name Role Phone Sabas Spain MD Primary Care Provider [phone] Encounter Details Date Type Department Care Team (Late st Contact Info) Description 03/25/2025 Lab Requisition [facility] - Main Lab [address] [facility] [place] [address] [facility] [address] [phone] Essential (primary) hypertension Social History Tobacco Use [...] hypertension documented in this encounter Care Teams Box Strapper Relationship Specialty Start Date End Date Sabas Spain MD [address] [facility] [address] [facility] [phone] PCP - General Family Medicine 03/22/25 documented as of this encounter
--- OUTSIDE RECORDS SUMMARY | 2025-10-19 15:40 | XMS_ITS | Clinical Summary ---
Author Organization [facility] Address [address] [place] [address] Phone Care Team Providers Care New Account Interviewer Name Role Phone Sabas Spain MD Primary Care Provider [phone] Allergies Active Allergy Reactions Criticality Noted Date [...] to bed 2 Active mv,josé,iron,mn /folic acid/chol (OZQE-MZHP-BGO LS, PABA, ORAL) Take 2 Tabs by mouth daily. 0 Active alcohol swabs pads, medicated USE THREE TIMES DAILY DIRECTED 2 Active blood-glucose meter kit USE TO TEST BLOOD SUGAR THREE TIMES DAILY 1 Active pen needle, diabetic (Easy Comfort Pen Coggon) 33 gauge x 1/4 needle USE 1 NEEDLE SUBCUTANEOUSLY 4 TIMES DAILY 30 DAY(S) 2 Active flash glucose scanning reader (komootStLukkin Annamarie 14 Day [place]) misc 1 Device by Does not apply route continuous. Use reader to scan sensor at least every 8 hours 1 Active flash glucose scanning reader (FreeStyle Annamarie 2 [place]) misc Use daily to check blood sugars [...] Date Site/Laterality Comments OTHER SURGICAL HISTORY PROCEDURE: MO RPR LAC 2.5 CM/< MOUTH&/ANT TWO-THIRDS TONG SECTION PROCEDURE: HISTORICAL DELIVERY TOTAL KNEE ARTHROPLASTY 12/2019 Left PROCEDURE: MO ARTHRP KNE CONDYLE&PLATU MEDIAL&LAT COMPARTMENTS Medical History [...] 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 edema ([facility]) IBS (irritable bowel syndrome) 05/22/2019 D X:IBS [...] Last Done Comments Breast Cancer Screening 1982 Drug Screen 1982 Non-Opioid Controlled Substance Agreement 1982 Diabetes: Annual Foot Exam 1992 Diabetes: [...] (ABNORMAL) Comprehensive metabolic panel (03/22/2025 5:30 AM ED) Sodium 134 133 - 145 mmol/L LAB CHEMISTRY METHOD 03/22/2025 9:02 AM [facility] Potassium 4.6 3.5 - 5.5 mmol/L LAB CHEMISTRY METHOD 03/22/2025 9:02 AM [facility] Chloride 99 96 - 110 mmol/L LAB CHEMISTRY METHOD 03/22/2025 9:02 AM [facility] CO2 27 21 - 32 mmol/L LAB CHEMISTRY METHOD 03/22/2025 9:02 AM [facility] Anion Gap 8 3 - 11 LAB CHEMISTRY METHOD 03/22/2025 9:02 AM [facility] Glucose 314(H) 70 - 100 mg/dL LAB CHEMISTRY METHOD 03/22/2025 9:02 AM [facility] Comment:Results verified by repeat testing BUN 16 5 - 25 mg/dL LAB CHEMISTRY METHOD 03/22/2025 9:02 AM [facility] Creatinine 0.85 0.50 - 1.10 mg/dL LAB CHEMISTRY METHOD 03/22/2025 9:02 AM [facility] eGFR 88 >=60 mL/min/1. 73m2 LAB CHEMISTRY METHOD 03/22/2025 9:02 AM [facility] Comment:Calculation based on the Chronic Kidney Disease Epidemiology Collaboration (CKD-EPI) equation refit without adjustment for race. BUN/Creatinine Ratio 18.8 LAB CHEMISTRY METHOD 03/22/2025 9:02 AM [facility] Calcium 9.3 8.5 - 10.5 mg/dL LAB CHEMISTRY METHOD 03/22/2025 9:02 AM [facility] AST (SGOT) 24 10 - 42 unit/L LAB CHEMISTRY METHOD 03/22/2025 9:02 AM [facility] ALT (SGPT) 37 10 - 60 unit/L LAB CHEMISTRY METHOD 03/22/2025 9:02 AM EDT [facility] Alkaline Phosphatase 138(H) 42 - 121 unit/L LAB CHEMISTRY METHOD 03/22/2025 9:02 AM EDT [facility] Total Protein 6.5 6.0 - 8.0 g/dL LAB CHEMISTRY METHOD 03/22/2025 9:02 AM EDT [facility] Albumin 3.4 3.2 - 5.0 g/dL LAB CHEMISTRY METHOD 03/22/2025 9:02 AM EDT [facility] Total Bilirubin 0.4 0.0 - 1.4 mg/dL LAB CHEMISTRY METHOD 03/22/2025 9:02 AM EDT [facility] Blood Venous blood specimen / Unknown Venipuncture / Unknown 03/22/2025 5:30 AM EDT 03/22/2025 7:29 AM EDT Sabas Spani MD LAB BLOOD ORDERABLES Final Resul t [facility] [address] [place] [address], * (ABNORMAL) Hemoglobin A1c (03/29/2021) Pathologist [facility] Hemoglobin A1C 9.2(A) <=6.5 % Blood Venous blood specimen / Unknown Historical Provider LAB BLOOD ORDERABLES Hannah l Result * Urine Albumin Creatinine Ratio (12/04/2020) Pathologist [facility] Urine Albumin Creatinine Ratio Abstracted Historical Provider HEALTH MAINTENANCE Final Result * (ABNORMAL) Lipid panel (12/04/2020) Pathologist [facility] LDL/HDL Ratio 4 0 - 4 Triglycerides 184(A) 0 - 150 mg/dL Cholesterol 172 0 - 200 mg/dL HDL 42 >=40 mg/dL LDL Cholesterol 94 0 - 100 mg/dL Blood Venous blood specimen / Unknown [facility] Provider LAB BLOOD ORDERABLES Hannah l Result * HIV Screening (09/11/2020) Pathologist [facility] HIV Screening Abstracted [facility] Provider HEALTH MAINTENANCE Final Result * Hepatitis C Screening (09/11/2020) Pathologist [facility] Hepatitis C Screening Abstracted [facility] Provider HEALTH MAINTENANCE Final Result * Cervical Cancer Screening: HPV (07/23/2017) [facility] Cervical Cancer Screening: HPV Negative, Abstracted [facility] Provider HEALTH MAINTENANCE Final Result from Last 3 Months or Most Recently Relevant to Health Maintenance [place] [address] [place] [address] [place] [address] Care Teams New Account Interviewer Relationship Specialty Start Date End Date Sabas Spain MD [address], [phone] PCP - General Family Medicine 03/22/25
[2025-10-19 15:51] VITALS: BP 115/66; PULSE 83; RESP 14; TEMP 36.6; O2SAT 94; BMI 44.1
--- NOTE | 2025-10-19 15:51 | A.OFFPC_ITS ---
Vital Signs 10/19/25 15:51 Height 5 ft 4 in Weight 257 lb BMI 44.1 BP 115/66 Blood Pressure Location Lt brachial Position Sitting Respiration 14 Pulse 83 Pulse Source Pulse Oximeter Temp 97.9 F Temp Source Oral Pulse Oximetry (%) 94 Oxygen Delivery Method Room Air Intake Visit Reasons: 2 wk - lab review Allergies No Known Allergies (No Known Allergies*) Allergy (Verified 10/19/25 16:08) Medication List - Last Reconciled 10/19/25 by Ubaldo Dominguez MD aspirin 81 mg PO BID atorvastatin (Lipitor) 40 mg PO BEDTIME cetirizine 10 mg PO DAILY 30 days diclofenac sodium 1% 1 ea topical QID eszopiclone (Lunesta) 3 mg PO BEDTIME 30 days eszopiclone (Lunesta) 6 mg (2 x 3 mg) PO BEDTIME 30 days gabapentin 200mg 2 hours before bedtime and 300mg at bedtime orally .; 30 days insulin degludec (Tresiba FlexTouch U-200 insulin) 30 units subcut insulin lispro (Humalog KwikPen (U-100) Insulin) 1 sliding scale dose subcut insulin syringe-needle U-100 (Ultracare Insulin Syringe) As directed levothyroxine 200 mcg PO DAILY magnesium oxide 400 mg PO BEDTIME 30 days metformin 1,000 mg PO BID omeprazole 40 mg PO DAILY valacyclovir 500 mg PO BID vitamin E mixed 400 units PO .QD Tobacco use date assessed: 10/01/25 Dental Screening Dental Screen Date: 10/01/25 HPI HPI Comments History of Present Illness Details History of Present Illness The patient is a 45 year old female presenting for review of lab results and management of chronic conditions. Type 2 Diabetes Mellitus: The patient has a history of type 2 diabetes mellitus and has been on insulin for approximately 2-3 years. Her current regimen includes 30 units of insulin at night and a sliding scale during the day. A previous physician had recommended 40 units during the day and 30 units at night plus a sliding scale. She checks her blood glucose upon waking, before meals, and before bed, with morning readings typically around 200 mg/dL. She has a history of metformin intolerance due to gastrointestinal side effects and was taken off of it. She also recalls a trial of an unnamed medication that caused a severe hypoglycemic episode, characterized by shaking and an inability to move. Hypothyroidism: The patient has a history of hypothyroidism and takes levothyroxine daily. She believes her current dose is 200 mcg, recalling that her prior doctor increased it to a high dose. Hyperlipidemia: The patient has hyperlipidemia with a recent LDL cholesterol level of 124 mg/dL. She is currently taking atorvastatin 20 mg. Elevated Liver Enzymes: Recent lab work showed slightly elevated liver enzymes. Chronic Lower Back Pain: The patient reports a history of a bulging disc and has previously received injections in her back at a sports and spine clinic. She is experiencing terrible lower back pain that radiates down the side of her leg. The pain is so severe that she must frequently sit down to relieve pressure while walking. She also describes a sensation of a maldonado of fire coming up my leg from her foot, which causes her to be unable to move. She reports no relief from taking gabapentin. Umbilical Discharge: For the past 2-3 weeks, the patient has experienced awful pain in her umbilicus every morning. This is associated with a malodorous discharge and crusting a round the belly button upon waking. She has a history of an umbilical hernia repair 5-6 years ago and a similar issue as an infant. She has been trying to clean the area with peroxide and applies ice packs, which provide very little pain relief. Surgical History: - Umbilical hernia repair approximately 5-6 years ago - History of injections in the back for pain - History of an injection in her ankle Medications: - Insulin, 30 units at night - Insulin, sliding scale during the day - Levothyroxine 200 mcg daily (patient-r eported, unconfirmed dose) - Atorvastatin 20 mg daily - Gabapentin Social History: - Functional Status: Reports her ability to walk is significantly limited by severe lower back pain, requiring frequent rest. Diagnostic Results: - Random glucose: 195 mg/dL - Hemoglobin A1c: 9.7% - LDL cholesterol: 124 mg/dL - Liver enzymes: a little elevated Past Medical History - Type 2 diabetes mellitus, insulin-depe ndent - Hypothyroidism - Hyperlipidemia - Bulging disc - History of umbilical hernia, status po st repair - History of medication-induced hypoglyc emia - History of metformin intolerance Health Maintenance - The patient will begin the Hepatitis B vaccine series, which is recommended for patients with type 2 diabetes. The first dose can be administered today, with subsequent doses at one month and six months. [facility] Medical History (Updated 10/20/25 @ 19:08 by Ubaldo Dominguez MD) Skin tag Learning disability Peripheral neuropathy Screening for diabetic retinopathy Diabetes type 2 Obstructive sleep apnea Osteoarthritis HLD (hyperlipidemia) GERD (gastroesophageal reflux disease) IBS (irritable bowel syndrome) Hypothyroidism Diabetes Anemia Surgical History History of knee replacement No pertinent past surgical history Family History Father Arthritis Mother Depression Social History (Updated 10/01/25 @ 16:07 by Vinay Rizo CMA) Housing: Apartment Alcohol intake: never Patient Tobacco Use Status: Never used Tobacco e-Cigarette/Vaping Use: Never Used service: No Current occupational status: disabled Cognitive needs: No Hearing needs: No Vision needs: No Questionnaire Thrive Questionnaire Date Thrive assessed: 09/07/25 I am a: Patient What is your living situation today?: I have a steady place to live Within the past 12 months, did the food you bought not last and you didn't have the money to get more?: Sometimes True Within the past 12 months, did you worry whether your food would run out before you got money to buy more?: Often true Do you have trouble paying for medicines?: No Do you have trouble getting transportation to medical appointments?: Yes Do you have trouble paying your heating and electricity bill?: Yes Do you have trouble taking care of your child, family member or friend?: No Do you have trouble with day-to-day activities such as bathing, preparing meals, shopping, managing finances, etc.?: No Are you currently unemployed and looking for a job?: No Are you interested in more education?: No Currently or been in a relationship where the following occur: No concerns reported THRIVE Score: 4 ODILIA-7 AMB Questionnaire ODILIA-7 Date ODILIA - 7 assessed: 10/01/25 Source: Developed by Drs. John Laboy, Jazmin Saavedra, Garett Salinas and colleagues, with an educational martín from [employer]. Review of Systems Narrative Review of Systems - General: Reports feeling shaky, nervous, and sweaty with hypoglycemia. - Neurological: Reports memory problems, which she attributes to gabapentin. Reports severe lower back pain radiating down the side of her leg, and a separate sensation of fire traveling up her leg from the foot. - Musculoskeletal: Reports severe lower back pain and pain in the leg, limiting ambulation. - Gastrointestinal/Abdomen: Reports awful pain in her umbilicus every morning, associated with malodorous discharge and crusting. Denies tolerating metformin due to gastrointestinal upset. 10-point ROS reviewed and negative except as noted in HPI Physical exam (Primary Care) Vital Signs: Last Vital Signs Temp 97.9 F 10/19/25 15:51 Pulse 83 10/19/25 15:51 Resp 14 10/19/25 15:51 BP 115/66 10/19/25 15:51 Pulse Ox 94 10/19/25 15:51 Oxygen Delivery Method Room Air 10/19/25 15:51 BMI result Body Mass Index 44.1 Tobacco/Smoking Status: Tobacco use Status Tobacco use date assessed 10/01/25 10/19/25 16:14 Patient Tobacco Use Status Never used Tobacco 10/19/25 16:14 e-Cigarette/Vaping Use Never Used 10/19/25 16:14 Thrive Assessment: Date of Thrive Assessment Date Thrive assessed 09/07/25 10/19/25 16:14 Currently or been in a relationship where the following occur: No concerns reported Narrative Physical Exam General: Well-appearing, in no acute distress. Vital signs: Within normal limits. HEENT: Normocephalic, atraumatic. PERRLA, EOMI. Conjunctiva clear, sclera a nicteric. Oropharynx clear, mucous membranes moist. TMs intact bilaterally. Neck: Supple, no lymphadenopathy, no thyromegaly, no JVD or carotid bruits. Cardiovascular: RRR, normal S1/S2, no murmurs, rubs, or gallops. Peripheral pulses 2+ and symmetric. No edema. Respiratory: Lungs clear to auscultation bilaterally, no wheezes, rales, or rhonchi. Normal effort. Abdomen: Soft, non-tender, non-distended. Normoactive bowel sounds. No hepatosplenomegaly, no masses. Noted umbilicus looks normal no signs of infection MSK: Full range of motion, no joint swelling or deformity. Normal gait. Reports significant lower back pain radiating to the leg, consistent with a bulging disc. Skin: Warm, dry, intact. No rashes, lesions, or pallor. Neuro: Alert and oriented x3. Cranial nerves II-XII intact. Strength 5/5 throughout. Sensation intact. Reflexes 2+ symmetric. Normal coordination and gait. Psych: Appropriate mood and affect. Normal judgment and insight. Coding Level of Care Code Est Pt Level 3 (99769) Add On Problem Visit Only Diagnoses Diabetes type 2 E11.9 Hypothyroidism E03.9 HLD (hyperlipidemia) E78.5 Chronic lower back pain M54.50; G89.29 Umbilical discharge R19.8 BMI 40.0-44.9, adult Z68.41 Elevated liver enzymes R74.8 Peripheral neuropathy G62.9 Assessment & Plan Assessment & Plan (1) Diabetes type 2: Code(s): E11.9 - Type 2 diabetes mellitus without complications Category: Medical (2) Hypothyroidism: Code(s): E03.9 - Hypothyroidism, unspecified Category: Medical (3) HLD (hyperlipidemia): Code(s): E78.5 - Hyperlipidemia, unspecified Category: Medical (4) Chronic lower back pain: Code(s): M54.50 - Low back pain, unspecified; G89.29 - Other chronic pain Category: Medical (5) Umbilical discharge: Code(s): R19.8 - Other specified symptoms and signs involving the digestive system and abdomen Category: Medical (6) BMI 40.0-44.9, adult: Code(s): Z68.41 - Body mass index [BMI] 40.0-44.9, adult Category: Medical (7) Elevated liver enzymes: Code(s): R74.8 - Abnormal levels of other serum enzymes Category: Medical (8) Peripheral neuropathy: Code(s): G62.9 - Polyneuropathy, unspecified Category: Medical Plan Consent Patient was informed and verbally consented to the use of an ambient scribe for clinic note documentation during this visit. Plan 1. Type 2 Diabetes Mellitus, Uncontrolled - The patient will titrate her basal insulin. She will start with 33 units tonight and increase the dose by 3 units every 3 days if her fasting morning glucose remains above 130 mg/dL. - The target for fasting morning glucose is between 80-130 mg/dL. Once this target is reached, she will stop titrating and continue on that dose. - Start metformin extended-release twice a day, once in the morning and once at night. - She was counseled that gastrointestinal side effects from metformin ER usually resolve within two weeks. - Prescribed intranasal glucagon for rescue treatment of hypoglycemia (blood glucose < 70 mg/dL), with symptoms including shakiness, nervousness, and sweating. - The patient will continue her sliding scale insulin during the day, with the expectation that it may be needed less as her basal insulin is optimized. 2. Hypothyroidism - A referral will be placed to Endocrinology at [facility] for evaluation and management, given her high dose of levothyroxine (200 mcg). 3. Hyperlipidemia - Increase atorvastatin from 20 mg to 40 mg daily, as her LDL is 124 mg/dL and the goal for a patient with type 2 diabetes is below 70 mg/dL. 4. Elevated Liver Enzymes - A liver ultrasound will be ordered to evaluate the elevated liver enzymes. - The patient will start taking vitamin E daily to help protect her liver. 5. Chronic Lower Back Pain With Sciatica - A referral will be placed to a maintenance painter apprentice at [facility] for further evaluation and treatment options. - A physical therapy consult will be placed for lower back strengthening while awaiting the pain management appointment. 6. Umbilical Discharge - The patient is scheduled for a follow-up appointment next week for a more thorough evaluation of her umbilical pain and discharge. Discussion Notes I reviewed the patient's recent lab results, highlighting her uncontrolled type 2 diabetes with an A1c of 9.7% and elevated LDL cholesterol of 124. I explained the plan to address this, including a structured titration of her basal insulin, starting at 33 units and increasing by 3 units every 3 days to achieve a target fasting glucose of 80-130 mg/dL. We discussed initiating metformin extended- release, noting it is often better tolerated than the instant-release form she had issues with previously. I also prescribed intranasal glucagon for potential hypoglycemia and instructed her on its use. For her hyperlipidemia, I recommended increasing her atorvastatin to 40 mg. Regarding her elevated liver enzymes, I explained the likely connection to high lipid levels and advised a liver ultrasound and daily vitamin E. We discussed referrals to endocrinology for her high-dose levothyroxine and to pain management and physical therapy for her chronic back pain. I recommended the Hepatitis B vaccination series due to her diabetes. Finally, I advised her to schedule a follow-up appointment next week for a dedicated evaluation of her new umbilical symptoms. The patient verbalized understanding and agreed with the plan. Patient Instructions - Check your blood sugar every morning before you eat. Your goal is to have it between 80 and 130. - Starting tonight, increase your nighttime insulin dose to 33 units. - If your morning blood sugar is still not in the goal range of 80-130 after 3 days, increase your nighttime insulin dose by another 3 units. Continue doing this every 3 days until your sugar is in the goal range. - Start taking Metformin extended-release twice a day, once in the morning and once at night. This may cause some stomach upset at first, but it usually gets better after two weeks. - If you start to feel shaky, nervous, or sweaty, check your blood sugar. If it is below 70, use the sugar spray in your nose as prescribed. - Increase your cholesterol pill (atorvastatin) to 40 mg once a day. - I have ordered an ultrasound of your liver and prescribed Vitamin E for you to take every day to protect your liver. - I am referring you to a thyroid specialist (stud driver). Their office will call you to schedule an appointment. - I am also referring you to a pain management doctor and a physical therapist for your back pain. - You are due for the Hepatitis B vaccine. You will get the first shot today, the second in one month, and the third in six months. - Please make an appointment to see me again next week so I can examine your belly button more closely. Medical Decision Making The patient is a 45-year-old female with several poorly controlled chronic conditions requiring intervention. Her type 2 diabetes is significantly uncontrolled, as evidenced by an A1c of 9.7% and fasting hyperglycemia. The primary goal is to achieve better glycemic control to reduce her risk of long- term complications. This will be addressed by aggressively titrating her basal i nsulin dose with a clear algorithm targeting a fasting glucose of 80-130 mg/dL. Given her history of metformin intolerance, I am re-challenging with an extended-release formulation, which is often better tolerated. A rescue intranasal glucagon is prescribed for safety during this period of medication adjustment. The patient's hyperlipidemia (LDL 124) is also above the goal of <70 mg/dL for a patient with diabetes, necessitating an increase in her atorvastatin dose to 40 mg. The patient's use of a high-dose levothyroxine (200 mcg) for hypothyroidism warrants specialist evaluation, so a referral to endocrinology is appropriate. Her elevated liver enzymes are likely related to her metabolic syndrome and probable nonalcoholic fatty liver disease; this will be investigated with a liver ultrasound, and I have recommended vitamin E for its potential hepatoprotective benefits. The patient's chronic lower back pain with debilitating radicular symptoms is not responding to gabapentin, therefore a multi-modal approach with referrals to both pain management for potential interventions and physical therapy for strengthening is indicated. Her new complaint of umbilical pain and discharge is concerning, especially with a history of hernia repair. A dedicated follow-up visit next week is necessary for a focused physical examination. Finally, preventative care was addressed by recommending the Hepatitis B vaccine series, a standard of care for patients with diabetes due to their increased risk of infection. Total Time Statement 20 min Total time spent caring for the patient today includes pre-visit chart review, documentation, review of laboratory and diagnostic imaging results, medication reconciliation, medically necessary evaluation, counseling on diagnoses, care coordination, ordering appropriate tests and medications, review of tests performed by other providers, reporting test results to the patient, and communication with other healthcare providers. Orders: Orders US abdomen limited 10/19/25 R74.8 - Abnormal levels of other serum enzymes PT Evaluation and Treatment 10/19/25 G89.29 - Other chronic pain, M54.50 - Low back pain, unspecified Referrals Endocrinology Referral E03.9 - Hypothyroidism, unspecified Pain Management Referral G89.29 - Other chronic pain, M54.50 - Low back pain, unspecified Medications: New atorvastatin (Lipitor) 40 mg PO BEDTIME 90 tabs 0RF glucagon 3 mg/actuation 3 mg intranasal ONCE 2 ea 0RF vitamin E mixed 400 units PO .QD 90 caps 0RF metformin 1,000 mg PO BID 180 tabs 0RF Changed From insulin degludec (Tresiba FlexTouch U-200 insulin) 30 units subcut To insulin degludec (Tresiba FlexTouch U-200 insulin) 30 units (0.15 mL) subcut ONCE 9 mL 0RF Refilled cetirizine 10 mg PO DAILY 30 tabs 3RF 30 days
== END 2025-10-19 16:46 | disposition home or self-care (01) ==
LOC: HO.HMCFMS 15:38
PROVIDERS: PCP Student in an Organized Health Care Education/Training Program; Visit Provider Student in an Organized Health Care Education/Training Program
DX: E11.40 Type 2 diabetes mellitus with diabetic neuropathy, unspecified (principal); E66.813 Obesity, class 3; Z68.41 Body mass index [BMI] 40.0-44.9, adult; E03.9 Hypothyroidism, unspecified; R10.33 Periumbilical pain; E78.5 Hyperlipidemia, unspecified; M54.50 Low back pain, unspecified; R74.8 Abnormal levels of other serum enzymes; Z79.4 Long term (current) use of insulin

== ENCOUNTER → 2025-10-19 15:37 | Outpatient (BNVA) | payer OTHER, SELFPAY | PROVIDERS: PCP Student in an Organized Health Care Education/Training Program; Visit Provider Student in an Organized Health Care Education/Training Program | DX: E11.9 Type 2 diabetes mellitus without complications (principal); E03.9 Hypothyroidism, unspecified; E78.5 Hyperlipidemia, unspecified; M54.50 Low back pain, unspecified; G89.29 Other chronic pain; R19.8 Other specified symptoms and signs involving the digestive system and abdomen; R74.8 Abnormal levels of other serum enzymes; G62.9 Polyneuropathy, unspecified | CPT/HCPCS: 99211; 99212 ==